=== PATIENT | female | born 1995 | race Two or more races ===

== ENCOUNTER → 2019-05-20 | Outpatient (CLI) | payer SELFPAY ==
--- NOTE | 2019-05-20 14:54 | RADIOLOGY REPORT (SQ) ---
EXAM DESCRIPTION: U/S [id number] TRNABD 1GES W/ODOP COMPLETED DATE/TIME: 05/20/2019 2:30 pm REASON FOR STUDY: Z34.01 ENCNTR FOR SUPRVSN OF NORMAL FIRST PREG, FIRST TRIMESTER Z34.01 ENCNTR FOR SUPRVSN OF NORMAL FIRST PREG, FIRST TRIMES COMPARISON: None. TECHNIQUE: Transabdominal static and realtime grayscale images acquired of the pelvis. Additional se lected spectral and color Doppler images recorded. All images stored on PACs. bHCG: Not applicable. CLINICAL DATES: 11 weeks 5 days. LIMITATIONS: None. FINDINGS: FETUS: Single Living intrauterine . ULTRASOUND EGA: 11 weeks 1 day. ULTRASOUND STEPHY: 12/07/2018. EFW: Not applicable less than 20 weeks. CRL: 4.3 cm. FHR: 158 beats per minute. SURVEY: Too early to assess. AMNIOTIC FLUID: Adequate amount. PLACENTA: Not yet developed due to early gestation. SUBCHORIONIC BLEED: No. SIZE OF BLEED: Not applicable. UTERUS: No masses. No anomalies. CERVICAL LENGTH: 3.5 cm. Closed. RIGHT ADNEXA: Ovary not identified due to poor acoustical window. No adnexal free fluid. No adnexal masses. LEFT ADNEXA: Ovary not identified due to poor acoustical window. No adnexal free fluid. No adnexal masses. FREE FLUID: None. OTHER: No other significant finding. IMPRESSION: LIVING INTRAUTERINE . EGA 11 WEEKS 1 DAY. Trimester of : First trimester - 0 to 13 weeks. TECHNICAL DOCUMENTATION: JOB ID: [id number] [employer]- All Rights Reserved Reading location - IP/workstation name: [email or web address]
== END ==
LOC: RAD 13:48
PROVIDERS: ATTEND Midwife
DX: Z34.01 Encounter for supervision of normal first pregnancy, first trimester (principal)
CPT/HCPCS: 76801

== ENCOUNTER 2019-06-04 16:31 | Emergency (ER) | payer SELFPAY ==
[2019-06-04] MEDS ORDERED: ONDANSETRON HCL INJ/PF 4 MG/2 ML SDV IV ONE (17:17)
[2019-06-04] MEDS ORDERED: NORMAL SALINE 1000 ML 1,000 ML IV ONE (17:17)
--- NOTE | 2019-06-04 17:22 | ER Document Report ---
ED Medical Screen (RME) - General Chief Complaint: Vomiting Stated Complaint: VOMITING Time Seen by Provider: 06/04/19 17:11 Primary Care Provider: AMI RAYA CNM [Primary Care Provider] - Follow up as needed Notes: Patient is a G1, P0 13-week female who presents the emergency department with a chief complaint of nausea and vomiting. She states that she has been out of her nausea and vomiting. She has not seen care, due to her being from [place] and visiting her boyfriend. Patient states that she has some vaginal discharge. Exam: Soft mildly tender lower abdomen. I have greeted and performed a rapid initial assessment of this patient. A comprehensive ED assessment and evaluation of the patient, analysis of test results and completion of medical decision making process will be conducted by an additional ED providers. TRAVEL OUTSIDE OF THE U.S. IN LAST 30 DAYS: No - Related Data Allergies/Adverse Reactions: No Known Allergies Allergy (Verified 04/16/19 10:42) Past Medical History - Social History Chew tobacco use (# tins/day): No Frequency of alcohol use: None Drug Abuse: None Renal/ Medical History: Denies: Hx Peritoneal Dialysis Past Surgical History: Reports: Hx Orthopedic Surgery - Immunizations Hx Diphtheria, Pertussis, Tetanus Vaccination: No Physical Exam - Vital signs Vitals: Temp Pulse Resp BP Pulse Ox 98.3 F 85 16 118/63 98 06/04/19 16:44 06/04/19 16:44 06/04/19 16:44 06/04/19 16:44 06/04/19 16:44 Course - Vital Signs Vital signs: Temp Pulse Resp BP Pulse Ox 98.3 F 85 16 118/63 98 06/04/19 16:44 06/04/19 16:44 06/04/19 16:44 06/04/19 16:44 06/04/19 16:44 Doctor's Discharge - Discharge Referrals: AMI RAYA CNM [Primary Care Provider] - Follow up as needed
[2019-06-04 17:57] LABS: ABSOLUTE EOSINOPHILS # (AUTO) 0.1 10^3/uL (0.0-0.6); ABSOLUTE LYMPHOCYTES (AUTO) 2.2 10^3/uL (0.5-4.7); ABSOLUTE MONOCYTES (AUTO) 0.6 10^3/uL (0.1-1.4); ABSOLUTE NEUT (AUTO) 5.5 10^3/uL (1.7-8.2); BASOPHILS % (AUTO) 0.4 % (0-2); EOSINOPHILS % (AUTO) 0.8 % (0-6); HEMATOCRIT 38.2 % (36.0-47.0); HEMOGLOBIN 13.2 g/dL (12.0-15.5); LYMPHOCYTES % (AUTO) 25.9 % (13-45); MEAN CORPUSCULAR HEMOGLOBIN 30.2 pg (27.0-33.4); MEAN CORPUSCULAR HGB CONC 34.6 g/dL (32.0-36.0); MEAN CORPUSCULAR VOLUME 87 fl (80-97); MONOCYTES % (AUTO) 7.4 % (3-13); PLATELET COUNT 294 10^3/uL (150-450); RED BLOOD COUNT 4.38 10^6/uL (3.72-5.28); RED CELL DISTRIBUTION WIDTH 14.3 % (11.5-14.0); SEGMENTED NEUTROPHILS % (AUTO) 65.5 % (42-78); TOTAL CELLS COUNTED % (AUTO) 100 %; WHITE BLOOD COUNT 8.4 10^3/uL (4.0-10.5)
[2019-06-04 18:18] LABS: ALBUMIN 4.3 g/dL (3.5-5.0); ALKALINE PHOSPHATASE 54 U/L (38-126); ANION GAP 11 (5-19); ASPARTATE AMINO TRANSFERASE 26 U/L (14-36); BILIRUBIN,DIRECT 0.1 mg/dL (0.0-0.4); BILIRUBIN,TOTAL 0.3 mg/dL (0.2-1.3); BLOOD UREA NITROGEN 7 mg/dL (7-20); CALCIUM 9.7 mg/dL (8.4-10.2); CARBON DIOXIDE 23 mmol/L (22-30); CHLORIDE 103 mmol/L (98-107); GLUCOSE 86 mg/dL (75-110); POTASSIUM 3.9 mmol/L (3.6-5.0); TOTAL PROTEIN 7.2 g/dL (6.3-8.2)
--- NOTE | 2019-06-04 18:25 | RADIOLOGY REPORT (SQ) ---
EXAM DESCRIPTION: U/S [id number] TRNABD 1GES W/ODOP COMPLETED DATE/TIME: 06/04/2019 6:03 pm REASON FOR STUDY: pelvic pain COMPARISON: None. TECHNIQUE: Transabdominal static and realtime grayscale images acquired of the pelvis. Additional se lected spectral and color Doppler images recorded. All images stored on PACs. bHCG: Pending. CLINICAL DATES: 13 weeks 5 days LIMITATIONS: None. FINDINGS: FETUS: Single Living intrauterine . ULTRASOUND EGA: 13 weeks 2 days ULTRASOUND STEPHY: 12/08/2019 EFW: Not applicable less than 20 weeks. CRL: 7.1 cm FHR: 157 beats per minute. SURVEY: No visualized anomalies. AMNIOTIC FLUID: Adequate amount. PLACENTA: Posterior. SUBCHORIONIC BLEED: No SIZE OF BLEED: Not applicable. UTERUS: No masses. No anomalies. CERVICAL LENGTH: 2.6 cm Closed. RIGHT ADNEXA: Normal ovary with normal vascular flow. No adnexal free fluid. No adnexal masses. LEFT ADNEXA: Normal ovary with normal vascular flow. No adnexal free fluid. No adnexal masses. FREE FLUID: None. OTHER: No other significant finding. IMPRESSION: LIVING INTRAUTERINE . EGA 13 weeks 2 days Trimester of : First trimester - 0 to 13 weeks. TECHNICAL DOCUMENTATION: JOB ID: [id number] [employer]- All Rights Reserved rev Reading location - IP/workstation name: [email or web address]
[2019-06-04 18:27] LABS: APPEARANCE,URINE SLIGHTLY-CLOUDY; BILIRUBIN,URINE NEGATIVE (NEGATIVE); COLOR,URINE YELLOW; GLUCOSE, URINE NEGATIVE (NEGATIVE); KETONES,URINE NEGATIVE (NEGATIVE); LEUKOCYTE ESTERASE,URINE TRACE (NEGATIVE); NITRITE,URINE NEGATIVE (NEGATIVE); PROTEIN,URINE NEGATIVE (NEGATIVE); URINE SPECIFIC GRAVITY 1.021; UROBILINOGEN,URINE NEGATIVE mg/dL (<2.0)
--- NOTE | 2019-06-04 19:06 | ER Document Report ---
ED GI/ - General Chief Complaint: Vomiting Stated Complaint: VOMITING Time Seen by Provider: 06/04/19 17:11 Primary Care Provider: AMI RAYA CNM [Primary Care Provider] - Follow up as needed Mode of Arrival: Ambulatory Information source: Patient Notes: 24-year-old female presented to ED for complaint of nausea vomiting and pelvic pain. She has [facility] while she is here visiting her boyfriend who is soon getting out of the . She states she is also been seen at [facility] and at [facility]. She states she is gotten Zofran from both hospitals. She is 1 para 0 and 13 weeks . She states she has some vaginal discharge which she told the provider in triage who ordered a GC chlamydia and wet mount. Patient states she was just evaluated for this a week ago and all the tests were negative. I told her that if she has not been sexually active with anyone but her boyfriend that there is not really a lot of chance of her having anything new. She states she has not had an ultrasound before today. I have discussed the ultrasound and the lab results with the patient. She does not have any tenderness at this time. She did receive a liter of fluids before I examined her TRAVEL OUTSIDE OF THE U.S. IN LAST 30 DAYS: No - HPI Patient complains to provider of: Pelvic pain, , Vaginal discharge Onset: Other - Most of her for 13 weeks Timing/Duration: Intermittent Quality of pain: Cramping Severity at maximum: Moderate Severity in ED: Moderate Pain Level: 3 Location: Pelvis Vaginal bleeding (Compared to normal period): None Menstrual period history: LMP: 02/27/2019 : 1 Para: 0 heart tones (bpm): 157 ABO type: O Rh factor: Positive OB ultrasound done: Yes Associated symptoms: Nausea, Vaginal discharge, Vomiting, Other - Exacerbated by: Denies Relieved by: Denies Similar symptoms previously: Yes Recently seen / treated by doctor: Yes - Related Data Allergies/Adverse Reactions: No Known Allergies Allergy (Verified 04/16/19 10:42) Past Medical History - General Information source: Patient - Social History Smoking Status: Never Smoker Chew tobacco use (# tins/day): No Frequency of alcohol use: None Drug Abuse: None Lives with: Spouse/Significant other Family History: Reviewed & Not Pertinent Patient has suicidal ideation: No Patient has homicidal ideation: No - Past Medical History Cardiac Medical History: Reports: None Pulmonary Medical History: Reports: None EENT Medical History: Reports: None Neurological Medical History: Reports: None Endocrine Medical History: Reports: None Renal/ Medical History: Reports: None Malignancy Medical History: Reports: None GI Medical History: Reports: None Musculoskeletal Medical History: Reports Hx Musculoskeletal Trauma Skin Medical History: Reports None Psychiatric Medical History: Reports: None Traumatic Medical History: Reports: None Infectious Medical History: Reports: None Past Surgical History: Reports: Hx Orthopedic Surgery - left leg - Immunizations Hx Diphtheria, Pertussis, Tetanus Vaccination: No Review of Systems - Review of Systems Constitutional: No symptoms reported EENT: No symptoms reported Cardiovascular: No symptoms reported Respiratory: No symptoms reported Gastrointestinal: Abdominal pain - Discomfort Genitourinary: Pain Female Genitourinary: , Vaginal discharge, Other - Pelvic pain same pain she has had for the entire Musculoskeletal: No symptoms reported Skin: No symptoms reported Hematologic/Lymphatic: No symptoms reported Neurological/Psychological: No symptoms reported -: Yes All other systems reviewed and negative Physical Exam - Vital signs Vitals: Temp Pulse Resp BP Pulse Ox 98.3 F 85 16 118/63 98 06/04/19 16:44 06/04/19 16:44 06/04/19 16:44 06/04/19 16:44 06/04/19 16:44 Interpretation: Normal - General General appearance: Appears well, Alert - HEENT Head: Normocephalic, Atraumatic Eyes: Normal Pupils: PERRL - Respiratory Respiratory status: No respiratory distress Chest status: Nontender Breath sounds: Normal Chest palpation: Normal - Cardiovascular Rhythm: Regular Heart sounds: Normal auscultation Murmur: No - Abdominal Inspection: Gravid female Distension: No distension Bowel sounds: Hyperactive Tenderness: Nontender, Tender Organomegaly: No organomegaly - Back Back: Normal, Nontender - Extremities General upper extremity: Normal inspection, Nontender, Normal color, Normal ROM, Normal temperature General lower extremity: Normal inspection, Nontender, Normal color, Normal ROM, Normal temperature, Normal weight bearing. No: Jose's sign - Neurological Neuro grossly intact: Yes Cognition: Normal Orientation: AAOx4 [place] Coma Scale Eye Opening: Spontaneous Jorge Coma Scale Verbal: Oriented [place] Coma Scale Motor: Obeys Commands [place] Coma Scale Total: 15 Speech: Normal Motor strength normal: LUE, RUE, LLE, RLE Sensory: Normal - Psychological Associated symptoms: Normal affect, Normal mood - Skin Skin Temperature: Warm Skin Moisture: Dry Skin Color: Normal Course - Re-evaluation Re-evalutation: 06/04/19 19:16 Discussed labs and ultrasound with patient. Written report of labs and ultrasound given to patient. Patient is hyperactive bowel sounds. She states she is frequently constipated. Patient was instructed to use prunes or prune juice with a hot drink to help her with her bowel movement since she is . Patient verbalized understanding and agreement with this treatment plan. Written report of labs ultrasound and a CD of the ultrasound were given to patient as she lives in [place] and plans to move back in 2 weeks when her boyfriend gets out of the . - Vital Signs Vital signs: Temp Pulse Resp BP Pulse Ox 98.0 F 87 16 105/56 L 99 06/04/19 19:35 06/04/19 19:35 06/04/19 19:35 06/04/19 19:35 06/04/19 19:35 - Laboratory Result Diagrams: 06/04/19 17:36 06/04/19 17:36 Laboratory results interpreted by me: 06/04/19 06/04/19 06/04/19 17:36 17:36 17:36 RDW 14.3 H Sodium 136.5 L Creatinine 0.51 L Ur Leukocyte Esterase TRACE H - Diagnostic Test Radiology reviewed: Image reviewed, Reports reviewed Discharge - Discharge Clinical Impression: Pelvic pain affecting in first trimester, antepartum Abdominal pain Qualifiers: Abdominal location: generalized Qualified Code(s): R10.84 - Generalized abdominal pain Condition: Stable Disposition: HOME, SELF-CARE Additional Instructions: ABDOMINAL PAIN: There are many causes of abdominal pain. Pain can mean a serious problem requiring surgery (such as appendicitis). It can also be an innocent problem that goes away on its own (such as a viral infection). Often, time must pass to determine the cause of pain. The physician does not feel that hospitalization is necessary, at present. Things may change within the next 24 hours. Call the doctor or come back for re- examination if any problems occur, such as: (1) Pain that becomes more severe, steady, or becomes concentrated in one specific area. Also, pain that is more severe with movement or coughing. (2) Vomiting that persists or becomes more frequent. (3) Blood in the vomitus, urine, or bowel movements. Blood in the stool may have a tarry or black appearance. (4) Shaking chills or fever greater than 100 degrees F. (5) The abdomen becomes more distended or swollen. (6) Bowel movements cease. (7) Failure to improve as expected. NORMAL EXAM AND WORKUP: At this time, your examination and workup show no significant abnormality. No significant abnormal physical findings are noted. All laboratory, EKG, and imaging (x-ray, CT scans, ultrasound) studies that were ordered show no significant abnormality. Although your examination and all studies that were ordered showed no significant abnormal finding, there are no examinations and no studies that are 100% accurate. There is always the possibility that some abnormality could exist and not be detected with physical examination or within the limits and capabilities of laboratory and other studies. You should return or follow up as you were instructed on your visit today for further evaluation if your symptoms do not resolve. Pelvic Pain in Lower abdominal pain during can have many causes. We look for serious causes such as appendicitis, tubal , miscarriage, placental separation, or urinary tract infection. Less serious causes of pain include corpus luteum cyst (ovarian cyst of ) or stretching of the pelvic tissues by the enlarging uterus. Sometimes the pain comes from the bowels. If no specific cause for the pain is found, we attribute the pain to stretching of the uterine ligaments. This is called "round ligament strain." It is not dangerous. Just rest until the pain goes away. Call us or come back for reexamination if any problems occur, such as: (1) Pain that becomes more severe, steady, or becomes concentrated in one specific area. Also, pain that is more severe with movement or coughing. (2) Vomiting that persists or becomes more frequent. (3) Blood in the vomitus, urine, or bowel movements. Blood in the stool may have a tarry or black appearance. (4) Shaking chills or fever greater than 100 degrees. (5) The abdomen becomes more distended or swollen. (6) Bowel movements cease. (7) Vaginal bleeding. ANTINAUSEA MEDICATION: You have been given a medication to suppress nausea and vomiting. This type of medication can be given as a shot, pill, or suppository. It will usually last for many hours. Pills and shots usually last six to eight hours, suppositories last about 12 hours. For the typical illness, only one or two doses of the medication may be necessary. Mild lightheadedness may occur. This type of medicine can cause drowsiness. Do not drive or operate dangerous machinery while under its influence. Do not mix with alcohol. See your doctor at once if you have muscle spasms or tightness, or uncontr ollable motions (particularly of the neck, mouth, or jaw). Persistent vomiting or severe lightheadedness should also be evaluated by the physician. I have discussed your labs and ultrasound with you. You states she [facility] and had negative gonorrhea chlamydia and wet mount. You do not need to have repeated test if you would just negative a week ago. The GC and chlamydia have already been run if anything shows up on them they will call you but if you were negative a week ago I would not think they would be positive now. I have given you a written report of your labs and ultrasound to follow-up with [facility] when you return to [place]. Intravenous (IV) Fluids As part of your care today, you received intravenous (IV) fluids. IV fluids are administered to patients who are dehydrated or to those who have certain chemical (electrolyte) abnormalities that need correcting. FOLLOW-UP CARE: If you have been referred to a physician for follow-up care, call the physicians office for an appointment as you were instructed or within the next two days. If you experience worsening or a significant change in your symptoms, notify the physician immediately or return to the Emergency Department at any time for re-evaluation. Prescriptions: Ondansetron [Zofran Odt 4 mg Tablet] 1 tab PO Q6H #15 tab.rapdis Referrals: AMI RAYA CNM [Primary Care Provider] - Follow up as needed
[2019-06-04 19:21] LABS: CHLAM PCR NOT DETECTED (NOT DETECT)
[2019-06-04 19:36] VITALS: BP 105/56
== END 2019-06-04 19:35 | disposition home or self-care (01) ==
LOC: ER 16:31
DX: O26.91 Pregnancy related conditions, unspecified, first trimester (principal); R10.84 Generalized abdominal pain; R11.2 Nausea with vomiting, unspecified; R10.2 Pelvic and perineal pain; Z3A.13 13 weeks gestation of pregnancy
CPT/HCPCS: 86900; 86901; 36415; 85025; 80053; 81001; 87491; 87591; 76801; J2405; J7030

== ENCOUNTER 2019-07-26 15:16 | Emergency (ER) | payer SELFPAY ==
[2019-07-26 15:27] VITALS: BP 120/63
[2019-07-26] MEDS ORDERED: ACETAMINOPHEN 325 MG TABLET PO ONE (15:34)
--- NOTE | 2019-07-26 15:35 | ER Document Report ---
HPI - HPI Patient complains to provider of: Bilateral wrist pain Time Seen by Provider: 07/26/19 15:28 Onset: Other - 3 days Onset/Duration: Persistent Quality of pain: Achy Pain Level: 3 Context: Patient presents complaining of bilateral wrist pain. Patient states the pain is primarily in the morning and worsens when she hyper-flexes or extends her wrist. Patient denies any injury or fever. 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 Associated Symptoms: Other - Bilateral wrist pain. denies: Fever Exacerbated by: Movement Relieved by: Remaining still Similar symptoms previously: No Recently seen / treated by doctor: No - ROS ROS below otherwise negative: Yes Systems Reviewed and Negative: Yes All other systems reviewed and negative - CONSTITUTIONAL Constitutional: DENIES: Fever, Chills - NEURO Neurology: DENIES: Weakness - GASTROINTESTINAL Gastrointestinal: DENIES: Nausea - REPRODUCTIVE Reproductive: REPORTS: : - MUSCULOSKELETAL Musculoskeletal: REPORTS: Extremity pain. DENIES: Swelling - DERM Skin Color: Normal Skin Problems: None Past Medical History - General Information source: Patient - Social History Smoking Status: Former Smoker Chew tobacco use (# tins/day): No Frequency of alcohol use: None Drug Abuse: None Occupation: [employer] Family History: Reviewed & Not Pertinent Patient has suicidal ideation: No Patient has homicidal ideation: No - Medical History Medical History: Negative Renal/ Medical History: Denies: Hx Peritoneal Dialysis Past Surgical History: Reports: Hx Orthopedic Surgery - left leg - Immunizations Hx Diphtheria, Pertussis, Tetanus Vaccination: No Vertical Provider Document - CONSTITUTIONAL Agree With Documented VS: Yes Exam Limitations: No Limitations General Appearance: WD/WN, No Apparent Distress - INFECTION CONTROL TRAVEL OUTSIDE OF THE U.S. IN LAST 30 DAYS: No - HEENT HEENT: Atraumatic, Normocephalic - NECK Neck: Normal Inspection - RESPIRATORY Respiratory: No Respiratory Distress - CARDIOVASCULAR Pulses: Normal: Radial - MUSCULOSKELETAL/EXTREMETIES Musculoskeletal/Extremeties: MAEW, FROM, Tender - Tenderness to bilateral wrist and forearm, positive Phalen test, no radial, median or ulnar deficit, No Edema. negative: Eccymosis Notes: No joint swelling, erythema or calor - NEURO Level of Consciousness: Awake, Alert, Appropriate Motor/Sensory: No Motor Deficit - DERM Integumentary: Warm, Dry Course - Re-evaluation Re-evalutation: 07/26/19 15:39 Patient presents with likely carpal tunnel syndrome, no concern for septic arthritis gout or fracture. Patient encouraged to follow-up with orthopedics for any persistent pain or problems - Vital Signs Vital signs: Temp Pulse Resp BP Pulse Ox 98.1 F 85 16 120/63 100 07/26/19 15:26 07/26/19 15:26 07/26/19 15:26 07/26/19 15:26 07/26/19 15:26 Procedures - Immobilization Left Wrist Pre-Proc Neuro Vasc Exam: Normal Immobilizer type: Cock-up Performed by: PCT Post-Proc Neuro Vasc Exam: Normal Right Wrist Immobilizer type: Cock-up Performed by: PCT Post-Proc Neuro Vasc Exam: Normal Alignment checked and good: Yes Discharge - Discharge Clinical Impression: Bilateral wrist pain Condition: Stable Disposition: HOME, SELF-CARE Instructions: Acetaminophen, Carpal Tunnel Syndrome ([facility]), Temporary Splint ([facility]) Additional Instructions: Return immediately for any new or worsening symptoms Followup with your primary care provider, call tomorrow to make a followup appointment Wear splint for the next 5 days and then remove. If still having pain follow-up with orthopedics for further evaluation. Limit repetitive activities Forms: Return to Work, Restricted Release Referrals: AMI RAYA CNM [Primary Care Provider] - Follow up as needed [facility] [Provider Group] - Follow up as needed
== END 2019-07-26 15:49 | disposition home or self-care (01) ==
LOC: ER 15:16
DX: M25.531 Pain in right wrist (principal); M25.532 Pain in left wrist; Z87.891 Personal history of nicotine dependence
CPT/HCPCS: L3908 ×2

== ENCOUNTER → 2019-08-05 | Outpatient (CLI) | payer OTHER ==
--- NOTE | 2019-08-05 17:39 | RADIOLOGY REPORT (SQ) ---
EXAM DESCRIPTION: U/S OB 14+ TRNABD 1GES W/O DOP COMPLETED DATE/TIME: 08/05/2019 3:38 pm REASON FOR STUDY: Z34.02 ENCNTR FOR SUPRVSN OF NORMAL FIRST PREG, SECOND TRIMESTER Z34.02 ENCNTR FO R SUPRVSN OF NORMAL FIRST PREG, SECOND TRIME COMPARISON: 06/04/2019 TECHNIQUE: Static and Dynamic grayscale imaging performed of gravid uterus using transabdominal appr oach. Additional selected color Doppler and spectral images recorded. All stored on PACS. LIMITATIONS: None. FINDINGS: FETUSES SEEN:1 EGA: 22 WEEKS 3 DAYS Calculated using BPD,FL,HC,AC documented on images. No discrepancy with clinica l dates. STEPHY: 12/06/2019 EFW: 495 grams PERCENTILE: 35th percentile CLIFF: Largest pocket 4 cm PLACENTA: Posterior grade 1 PRESENTATION: Variable ANATOMY: HEART RATE: 157 beats per minute. FOUR CHAMBER HEART: Visualized. THREE VESSEL CORD: Yes. CORD INSERTION: Visualized. KIDNEYS AND BLADDER: Visualized. Appear normal. STOMACH: Visualized. Appears normal. SPINE: Normal as visualized. BRAIN AND LATERAL VENTRICLES: Visualized. Appear normal. OTHER: No other significant finding. MATERNAL ADNEXA: Maternal ovaries not visualized. CERVICAL LENGTH: 2.7 cm Closed. OTHER: No other significant finding. IMPRESSION: LIVING INTRAUTERINE . ESTIMATED GESTATIONAL AGE 22 weeks 3 days NO VISUALIZED ANOMALIES. Trimester of : Second trimester - 13 weeks 1 day to 27 weeks 6 days. TECHNICAL DOCUMENTATION: JOB ID: [id number] [employer]- All Rights Reserved Reading location - IP/workstation name: [email or web address]
== END ==
LOC: RAD 15:00
PROVIDERS: ATTEND Midwife
DX: Z34.02 Encounter for supervision of normal first pregnancy, second trimester (principal); Z3A.22 22 weeks gestation of pregnancy
CPT/HCPCS: 76805

== ENCOUNTER 2019-08-17 17:53 | Emergency (ER) | payer OTHER ==
--- NOTE | 2019-08-17 18:37 | ER Document Report ---
ED Medical Screen (RME) - General Chief Complaint: Abdominal Pain Stated Complaint: ARM INJURY Time Seen by Provider: 08/17/19 18:21 Primary Care Provider: AMI RAYA CNM [Primary Care Provider] - Follow up as needed Notes: Patient is a 24-year-old female who is 24 weeks who presents emergency department with a chief complaint of bilateral wrist pain and abdominal pain. Patient reports earlier today while at work she was pulling a metal rail when she felt a tug to her left abdomen. Patient reports this did not strike her abdomen and there was no trauma to the abdomen. Patient reports since then she has had vaginal pressure and one episode of spotting. Patient reports the episode of spotting occurred when she went to go use the restroom, wiped with the toilet paper noticed a light pink discharge. Patient also complains of bilateral wrist pain. She reports she was seen here recently in the emergency department and diagnosed with carpal tunnel placed in bilateral wrist splints. Patient reports she did go to physical therapy 2 weeks ago and was told to continue using the splints and Tylenol. Patient reports the Tylenol does not work. Patient reports she does use her hands a lot at work. TRAVEL OUTSIDE OF THE U.S. IN LAST 30 DAYS: No - Related Data Allergies/Adverse Reactions: No Known Allergies Allergy (Verified 04/16/19 10:42) Past Medical History Renal/ Medical History: Denies: Hx Peritoneal Dialysis Musculoskeltal Medical History: Reports Hx Musculoskeletal Trauma Past Surgical History: Reports: Hx Orthopedic Surgery - left leg - Immunizations Hx Diphtheria, Pertussis, Tetanus Vaccination: No Physical Exam - Vital signs Vitals: Temp Pulse Resp BP Pulse Ox 98.2 F 95 20 101/52 L 99 08/17/19 18:05 08/17/19 18:05 08/17/19 18:05 08/17/19 18:05 08/17/19 18:05 Course - Re-evaluation Re-evalutation: 08/17/19 18:37 I have greeted and performed a rapid initial assessment of this patient. A comprehensive ED assessment and evaluation of the patient, analysis of test results and completion of the medical decision making process will be conducted by additional ED providers. - Vital Signs Vital signs: Temp Pulse Resp BP Pulse Ox 98.2 F 95 20 101/52 L 99 08/17/19 18:05 08/17/19 18:05 08/17/19 18:05 08/17/19 18:05 08/17/19 18:05 Doctor's Discharge - Discharge Referrals: AMI RAYA CNM [Primary Care Provider] - Follow up as needed
[2019-08-17 19:22] LABS: APPEARANCE,URINE CLEAR; BILIRUBIN,URINE NEGATIVE (NEGATIVE); COLOR,URINE STRAW; GLUCOSE, URINE NEGATIVE (NEGATIVE); KETONES,URINE NEGATIVE (NEGATIVE); LEUKOCYTE ESTERASE,URINE NEGATIVE (NEGATIVE); NITRITE,URINE NEGATIVE (NEGATIVE); PROTEIN,URINE NEGATIVE (NEGATIVE); URINE SPECIFIC GRAVITY 1.009; UROBILINOGEN,URINE NEGATIVE mg/dL (<2.0)
--- NOTE | 2019-08-17 19:46 | RADIOLOGY REPORT (SQ) ---
EXAM DESCRIPTION: U/S OB 14+ TA/1 GEST W/DOPPLER COMPLETED DATE/TIME: 08/17/2019 7:32 pm REASON FOR STUDY: abdominal discomfort, 24 weeks COMPARISON: 06/29/2019 TECHNIQUE: Static and Dynamic grayscale imaging performed of gravid uterus using transabdominal appr oach. Additional selected color Doppler and spectral images recorded. All stored on PACS. LIMITATIONS: None. FINDINGS: FETUSES SEEN:1 EGA: 24 weeks 3 days Calculated using BPD,FL,HC,AC documented on images. No discrepancy with clinica l dates. STEPHY: 12/04/2019 EFW: 709+/- 105 grams PERCENTILE: Not calculated. CLIFF: 12.9 cm. PLACENTA: Posterior and to the right. GRADE: I PRESENTATION: Variable. ANATOMY: HEART RATE: 152 beats per minute. Complete anatomical assessment was not performed. OTHER: Cervix measures 2.7 cm. MATERNAL ADNEXA: Maternal ovaries not visualized. CERVICAL LENGTH: 2.7 cm. Closed. OTHER: No other significant finding. IMPRESSION: LIVING INTRAUTERINE . ESTIMATED GESTATIONAL AGE 24 weeks 3 days. NO VISUALIZED ANOMALIES. Trimester of : Second trimester - 13 weeks 1 day to 27 weeks 6 days. TECHNICAL DOCUMENTATION: JOB ID: [id number] [employer]- All Rights Reserved Reading location - IP/workstation name: [email or web address]
[2019-08-17] MEDS ORDERED: ACETAMINOPHEN 325 MG TABLET PO ONE (20:24)
--- NOTE | 2019-08-17 20:37 | ER Document Report ---
ED General - General Chief Complaint: Abdominal Pain Stated Complaint: ARM INJURY Time Seen by Provider: 08/17/19 18:21 Primary Care Provider: AMI RAYA CNM [NO LOCAL MD] - Follow up as needed TRAVEL OUTSIDE OF THE [place] IN LAST 30 DAYS: No - HPI Notes: Patient is a 24-year-old female, , who presents emergency department for evaluation of bilateral wrist pain and pelvic pain/bleeding. Initially, patient's complaint is bilateral carpal tunnel. She was diagnosed with this recently. She is placed in response. She is taking Tylenol. She states none of this is helping. She complains of numbness in the normal distribution. She has some weakness. This is been ongoing for a few weeks. She has had some physical therapy with nothing significant relief. Patient also states that she was straining yesterday, felt something pull on her abdomen, and then had one small episode of vaginal bleeding. She states this is only with wiping after urination. She has not had any continuous bleeding. She is unsure as to whether or not she is felt the baby move since then. - Related Data Allergies/Adverse Reactions: No Known Allergies Allergy (Verified 04/16/19 10:42) Home Medications: vitamin Past Medical History - General Information source: Patient - Social History Smoking Status: Never Smoker Family History: Reviewed & Not Pertinent Patient has suicidal ideation: No Patient has homicidal ideation: No Renal/ Medical History: Denies: Hx Peritoneal Dialysis Musculoskeletal Medical History: Reports Hx Musculoskeletal Trauma Past Surgical History: Reports: Hx Orthopedic Surgery - left leg - Immunizations Hx Diphtheria, Pertussis, Tetanus Vaccination: No Review of Systems - Review of Systems Constitutional: No symptoms reported EENT: No symptoms reported Cardiovascular: No symptoms reported Respiratory: No symptoms reported Gastrointestinal: No symptoms reported Genitourinary: See HPI Female Genitourinary: See HPI Musculoskeletal: See HPI Skin: No symptoms reported Neurological/Psychological: No symptoms reported Physical Exam - Vital signs Vitals: Temp Pulse Resp BP Pulse Ox 98.2 F 95 20 101/52 L 99 08/17/19 18:05 08/17/19 18:05 08/17/19 18:05 08/17/19 18:05 08/17/19 18:05 - Notes Notes: Is a pleasant 24-year-old female appears her stated age in acute distress. Head is normocephalic, atraumatic. Pupils are equal round, reactive to light. Oral mucosa is moist. Heart is regular rate and rhythm, lungs are clear station bilaterally. Abdomen is gravid, nontender, normoactive bowel sounds. Examination bilateral upper extremities feels cock-up wrist splints in place. Neurovascularly intact distally. She does have diminished sensation to light touch over the first through third digits on the right, first through second digits on the left. Positive Phalen's. Course - Re-evaluation Re-evalutation: 08/17/19 20:35 Patient is a 24-year-old female who presents emergency department for evaluation. She had initial orders as placed through triage. Unfortunately, I do not have anything else to offer the patient for her carpal tunnel issues besides Tylenol. I will go ahead and place a referral onto orthopedics. She is encouraged to continue physical therapy. In regards to her scant bleeding, her ultrasound was found to be normal. Her urinalysis feels reveal any signs of bleeding or infection. Patient is encouraged to follow-up with OB next week, return to the ED with worsening. - Vital Signs Vital signs: Temp Pulse Resp BP Pulse Ox 98.2 F 95 20 101/52 L 99 08/17/19 18:05 08/17/19 18:05 08/17/19 18:05 08/17/19 18:05 08/17/19 18:05 Discharge - Discharge Clinical Impression: Bilateral carpal tunnel syndrome, Vaginal bleeding in Condition: Stable Disposition: HOME, SELF-CARE Instructions: Carpal Tunnel Syndrome ([facility]) Additional Instructions: Continue Tylenol as needed for your wrist pain. Seek out orthopedic referral, you can follow-up with the doctor listed below. Continue with wrist splints, physical therapy. Your ultrasound failed to reveal any significant abnormality. Follow-up with OB next week. Return to the ED with worsening or new concerning symptoms of any sort. Referrals: AMI RAYA CNM [NO LOCAL MD] - Follow up as needed JERRICA CASTAÑEDA DO [ACTIVE STAFF] - Follow up as needed JAREK DAVALOS MD [ACTIVE STAFF] - Follow up as needed
[2019-08-17 20:58] VITALS: BP 108/60
== END 2019-08-17 20:50 | disposition home or self-care (01) ==
LOC: ER 17:53
DX: O46.92 Antepartum hemorrhage, unspecified, second trimester (principal); O26.892 Other specified pregnancy related conditions, second trimester; G56.03 Carpal tunnel syndrome, bilateral upper limbs; M25.531 Pain in right wrist; M25.532 Pain in left wrist; R10.2 Pelvic and perineal pain; R20.0 Anesthesia of skin; R53.1 Weakness; Z3A.24 24 weeks gestation of pregnancy
CPT/HCPCS: 76805; 81001; 93976; 99284

== ENCOUNTER 2019-09-03 11:23 | Emergency (ER) | payer OTHER ==
[2019-09-03 11:53] VITALS: BP 113/68
--- NOTE | 2019-09-03 12:26 | ER Document Report ---
HPI - HPI Time Seen by Provider: 09/03/19 12:11 Pain Level: 4 Notes: 24-year-old female 28 weeks 1 para 0 presents to the emergency room for complaints of dental pain that radiates to ear after she "floss really hard last night". Patient seen by [facility]. Has not tried [id number] medications. Does not drink heat or ice. No previous problems prior to flossing. Patient does have a dental cavity that she has not followed up with a dentist for. Pain is 4-10, throbbing achy. Decreased eating but drinking without issues. Has been able to feel baby kicking without issues. Denies fevers, chills, chest pain,palpitations, shortness of breath, dyspnea, nausea, vomiting, diarrhea, abdominal pain, hematuria,blurred vision, double vision, loss of vision, speech changes, LH, dizziness, syncope, headaches, wheezing, ST, URI, neck pain, weakness, bowel or bladder dysfunction, saddle anesthesia, numbness or tingling in bilateral upper or lower extremities equally, muscle paralysis, weakness in bilateral upper or lower extremities equally or rash. REVIEW OF SYSTEMS:reviewed vital signs by RN CONSTITUTIONAL : Denies fever, chills, or sweats. Denies recent illness. EENT: reports dental pain. Denies eye, ear, throat, or or symptoms. Denies nasal or sinus congestion or discharge. Denies throat, tongue, or mouth swelling or difficulty swallowing. CARDIOVASCULAR: Denies chest pain. Denies palpitations or racing or irregular heart beat. Denies ankle edema. RESPIRATORY: Denies cough, cold, or chest congestion. Denies shortness of breath, difficulty breathing, or wheezing. GASTROINTESTINAL: Denies abdominal pain or distention. Denies nausea, vomiting, or diarrhea. Denies blood in vomitus, stools, or per rectum. Denies black, tarry stools. Denies constipation. GENITOURINARY: Denies difficulty urinating, painful urination, burning, frequency, blood in urine, or discharge. FEMALE GENITOURINARY: Denies vaginal bleeding, heavy or abnormal periods, irregular periods. Denies vaginal discharge or odor. MUSCULOSKELETAL: Denies back or neck pain or stiffness. Denies joint pain or swelling. SKIN: Denies rash, lesions or sores. HEMATOLOGIC : Denies easy bruising or bleeding. LYMPHATIC: Denies swollen, enlarged glands. NEUROLOGICAL: Denies confusion or altered mental status. Denies passing out or loss of consciousness. Denies dizziness or lightheadedness. Denies headache. Denies weakness or paralysis or loss of use of either side. Denies problems with gait or speech. Denies sensory loss, numbness, or tingling. Denies seizures. PSYCHIATRIC: Denies anxiety or stress. Denies depression, suicidal ideation, or homicidal ideation. ALL OTHER SYSTEMS REVIEWED AND NEGATIVE. PHYSICAL EXAMINATION: GENERAL: Well-appearing, well-nourished and in no acute distress. HEAD: Atraumatic, normocephalic. EYES: Pupils equal round and reactive to light, extraocular movements intact, conjunctiva are normal. ENT: Nares patent, oropharynx clear without exudates. Moist mucous membranes. TM with effusion bilaterally, no erythema. TMs intact. #15 gingiva with swelling, erythema and induration. No drainage or open wounds. No fluctuance. No facial swelling. Poor oral dentition, right upper jaw with minimal dental caries, no definite swelling or effusion. no trismus noted. Uvula is midline NECK: Normal range of motion, supple without lymphadenopathy LUNGS: Breath sounds clear to auscultation bilaterally and equal. No wheezes rales or rhonchi. HEART: Regular rate and rhythm without murmurs ABDOMEN: Soft, nontender, nondistended abdomen. No guarding, no rebound. No masses appreciated. Female : deferred Musculoskeletal: Normal range of motion, no pitting or edema. No cyanosis. NEUROLOGICAL: Cranial nerves grossly intact. Normal speech, normal gait. Normal sensory, motor exams PSYCH: Normal mood, normal affect. SKIN: Warm, Dry, normal turgor, no rashes or lesions noted. Dictation was performed using [employer] voice recognition software - EENT EENT: REPORTS: Ear Pain - left ear - REPRODUCTIVE Reproductive: REPORTS: : Past Medical History - Social History Smoking Status: Never Smoker Chew tobacco use (# tins/day): No Frequency of alcohol use: None Family History: Reviewed & Not Pertinent Patient has suicidal ideation: No Patient has homicidal ideation: No Renal/ Medical History: Denies: Hx Peritoneal Dialysis Musculoskeletal Medical History: Reports Hx Musculoskeletal Trauma Past Surgical History: Reports: Hx Orthopedic Surgery - left leg - Immunizations Hx Diphtheria, Pertussis, Tetanus Vaccination: No Vertical Provider Document - INFECTION CONTROL TRAVEL OUTSIDE OF THE [place] IN LAST 30 DAYS: No Course - Re-evaluation Re-evalutation: 09/03/19 12:26 Afebrile vital stable no distress. Nurse's notes reviewed. Advised apply heat 20 minutes on 20 minutes off several times a day. Soft diet. Take amoxicillin as directed. Follow-up with a dentist for further evaluation within 1 week. Take antibiotic with food. Monitor for any fevers or chills. After performing a Medical Screening Examination, I estimate there is LOW risk for a DEEP SPACE INFECTION (e.g., MANFRED'S ANGINA OR RETROPHARYNGEAL ABSCESS), MENINGITIS, INTRACRANIAL HEMORRHAGE, or AIRWAY COMPROMISE, thus I consider the discharge disposition reasonable. Also, there is no evidence or peritonitis, sepsis, or toxicity. I have reevaluated this patient multiple times and no significant life threatening changes are noted. The patient and I have discussed the diagnosis and risks, and we agree with discharging home with close follow-up with the understanding that symptoms and presentations can change. We also discussed returning to the Emergency Department immediately if new or worsening symptoms occur. We have discussed the symptoms which are most concerning (e.g., changing or worsening pain, trouble swallowing or breathing, neck stiffness or fever) that necessitate immediate return. - Vital Signs Vital signs: Temp Pulse Resp BP Pulse Ox 98.9 F 82 18 113/68 99 09/03/19 12:11 09/03/19 12:11 09/03/19 12:11 09/03/19 12:11 09/03/19 12:11 Discharge - Discharge Clinical Impression: Dental caries, Condition: Stable Disposition: HOME, SELF-CARE Instructions: Dentist, Dental Infection or Abscess ([facility]) Additional Instructions: Return immediately for any new or worsening symptoms. Follow up with primary care provider, call tomorrow to make followup appointment. Prescriptions: Amoxicillin Trihydrate [Amoxil 500 mg Capsule] 500 mg PO TID #30 capsule Forms: Return to Work Referrals: DIMPLE FLEMING MD [ACTIVE STAFF] - Follow up as needed REX RONDON DO [ACTIVE STAFF] - Follow up as needed
== END 2019-09-03 12:35 | disposition home or self-care (01) ==
LOC: ER 11:23
DX: O26.893 Other specified pregnancy related conditions, third trimester (principal); K02.9 Dental caries, unspecified; Z3A.28 28 weeks gestation of pregnancy
CPT/HCPCS: 99282

== ENCOUNTER 2019-11-02 15:51 | Outpatient (CLI) | payer OTHER ==
[2019-11-02] MEDS ORDERED: RINGERS SOLUTION,LACTATED 1,000 ML IV PRN (16:32)
[2019-11-02] MEDS ORDERED: ONDANSETRON HCL INJ/PF 4 MG/2 ML SDV ONE ×2 (17:17→21:41)
--- NOTE | 2019-11-02 17:28 | RADIOLOGY REPORT (SQ) ---
EXAM DESCRIPTION: U/S OB LIMITED COMPLETED DATE/TIME: 11/02/2019 5:11 pm REASON FOR STUDY: 35 weeks limited PNC cervical length COMPARISON: None. TECHNIQUE: Limited transabdominal grayscale ultrasound for evaluation of specific requested obstetri luis fernando parameters. LIMITATIONS: None. FINDINGS: CERVICAL LENGTH: 2.3 cm. Closed. CLIFF: 11.6 cm. FHR: 165 beats per minute. PRESENTATION: Cephalic. PLACENTA: Not assessed ANATOMY: Not assessed OTHER: Gestation of 35 weeks 1 day. IMPRESSION: LIMITED OBSTETRICAL ULTRASOUND WITH MEASURED PARAMETERS DELINEATED ABOVE. Trimester of : Third trimester - 28 weeks to delivery. TECHNICAL DOCUMENTATION: JOB ID: [id number] [employer]- All Rights Reserved Reading location - IP/workstation name: [email or web address]
[2019-11-02 17:40] LABS: APPEARANCE,URINE SLIGHTLY-CLOUDY; BILIRUBIN,URINE NEGATIVE (NEGATIVE); COLOR,URINE YELLOW; GLUCOSE, URINE NEGATIVE (NEGATIVE); KETONES,URINE NEGATIVE (NEGATIVE); LEUKOCYTE ESTERASE,URINE NEGATIVE (NEGATIVE); NITRITE,URINE NEGATIVE (NEGATIVE); PROTEIN,URINE NEGATIVE (NEGATIVE); URINE SPECIFIC GRAVITY 1.012; UROBILINOGEN,URINE NEGATIVE mg/dL (<2.0)
[2019-11-02] MEDS ORDERED: ONDANSETRON HCL INJ/PF 4 MG/2 ML SDV IV ONE ×2 (17:45→21:37)
[2019-11-02 17:49] LABS: URINE AMPHETAMINES SCREEN NEGATIVE; URINE BARBITURATES SCREEN NEGATIVE; URINE BENZODIAZEPINES SCREEN NEGATIVE; URINE COCAINE SCREEN NEGATIVE; URINE MARIJUANA (THC) SCREEN NEGATIVE; URINE METHADONE SCREEN NEGATIVE; URINE PHENCYCLIDINE SCREEN NEGATIVE
[2019-11-02] MEDS ORDERED: HYDROXYZINE PAMOATE 50 MG CAPSULE ONE (18:57)
[2019-11-02] MEDS ORDERED: HYDROXYZINE PAMOATE 50 MG CAPSULE PO ONE (19:15)
== END 2019-11-02 22:10 | disposition home or self-care (01) ==
LOC: LC 15:51
PROVIDERS: ATTEND Obstetrics & Gynecology Gynecology
PROC: 4A1HXCZ Monitoring of Products of Conception, Cardiac Rate, External Approach (ICD-10-PCS; principal; 2019-11-02)
DX: O09.33 Supervision of pregnancy with insufficient antenatal care, third trimester (principal); Z3A.35 35 weeks gestation of pregnancy
CPT/HCPCS: 59025; 81001; 80307; 76815; J2405

== ENCOUNTER 2019-11-23 16:59 | Outpatient (CLI) | payer OTHER ==
[2019-11-23 17:47] LABS: APPEARANCE,URINE CLOUDY; BILIRUBIN,URINE NEGATIVE (NEGATIVE); GLUCOSE, URINE NEGATIVE (NEGATIVE); KETONES,URINE NEGATIVE (NEGATIVE); LEUKOCYTE ESTERASE,URINE NEGATIVE (NEGATIVE); NITRITE,URINE NEGATIVE (NEGATIVE); PROTEIN,URINE 30 mg/dL (NEGATIVE); URINE SPECIFIC GRAVITY 1.008; UROBILINOGEN,URINE NEGATIVE mg/dL (<2.0)
[2019-11-23 17:49] LABS: COLOR,URINE YELLOW
[2019-11-23 17:58] LABS: URINE AMPHETAMINES SCREEN NEGATIVE; URINE BARBITURATES SCREEN NEGATIVE; URINE BENZODIAZEPINES SCREEN NEGATIVE; URINE COCAINE SCREEN NEGATIVE; URINE MARIJUANA (THC) SCREEN NEGATIVE; URINE METHADONE SCREEN NEGATIVE; URINE PHENCYCLIDINE SCREEN NEGATIVE
--- NOTE | 2019-11-23 18:22 | Non Stress Test Report ---
Non Stress Test Datetime Report Generated by CPN: 11/23/2019 18:22 DEMOGRAPHIC EGA NST: 38.1 INDICATION Indication for Study (NST) Other: ordered by provider VITAL SIGNS Temperature - NST: 98.1 Pulse - NST: 90 RESP - NST: 18 NBPSYS NST: 106 NBPDIA NST: 59 MONITORING Monitor Explained: Monitor Explained; Test Explained; Patient Verbalized Understanding Time on Monitor: 11/23/2019 17:21 Time off Monitor: 11/23/2019 18:20 NST Duration: 59 NST INTERVENTIONS NST Interventions: PO Hydration Physician Notified NST: Dr. Jose Physician Notified NST: Dr. Jose BABY A: [id number] BABY A Movement : Present Contraction Frequency : irregular FHR Baseline : 150 Accelerations : 15X15 Decelerations : None Variability : Moderate 6-25bpm NST Review: Meets Criteria for Reactive NST NST Review and Verified By : Joanna DUVAL Results: Reactive NST REPORT Report Trigger: Send Report
== END 2019-11-23 18:22 | disposition home or self-care (01) ==
LOC: LC 16:59
PROVIDERS: ATTEND Obstetrics & Gynecology
PROC: 4A1HXCZ Monitoring of Products of Conception, Cardiac Rate, External Approach (ICD-10-PCS; principal; 2019-11-23)
DX: O47.1 False labor at or after 37 completed weeks of gestation (principal); Z3A.38 38 weeks gestation of pregnancy
CPT/HCPCS: 59025; 80307; 81005; 84112

== ENCOUNTER 2019-12-08 13:18 | Outpatient (CLI) | payer OTHER | END 2019-12-08 14:24 | disposition home or self-care (01) | LOC: LC 13:18 | PROVIDERS: ATTEND Obstetrics & Gynecology | PROC: 4A1HXCZ Monitoring of Products of Conception, Cardiac Rate, External Approach (ICD-10-PCS; principal; 2019-12-08) | DX: Z34.93 Encounter for supervision of normal pregnancy, unspecified, third trimester (principal) | CPT/HCPCS: 59025; 84112 ==

== ENCOUNTER 2019-12-09 07:41 | Inpatient (IN) | payer OTHER ==
--- NOTE | 2019-12-09 07:44 | Non Stress Test Report ---
Non Stress Test Datetime Report Generated by CPN: 12/09/2019 07:44 DEMOGRAPHIC EGA NST: 40.2 INDICATION Indication for Study (NST) Other: Sent from [facility] for [employer] Prom MONITORING Monitor Explained: Monitor Explained; Test Explained; Patient Verbalized Understanding Time on Monitor: 12/08/2019 13:35 Time off Monitor: 12/08/2019 13:55 NST Duration: 20 NST INTERVENTIONS NST Interventions: Reposition Patient Physician Notified NST: NRobertson,CNM BABY A: [id number] BABY A Movement : Present Contraction Frequency : Irregular FHR Baseline : 150 Accelerations : 15X15 Decelerations : None Variability : Moderate 6-25bpm NST Review: Meets Criteria for Reactive NST NST Review and Verified By : ASHLEE PIERCE RN NST Results: Reactive NST REPORT Report Trigger: Send Report
[2019-12-09] MEDS ORDERED: OXYTOCIN/NORMAL SALINE 20 UNIT/1,000 ML RTUINJ IV PRN (08:24)
[2019-12-09] MEDS: RINGERS SOLUTION,LACTATED 1,000 ML IV PRN ×2 (08:30→20:30)
[2019-12-09] MEDS ORDERED: LIDOCAINE 1% INJ-PF (10 MG/ML) 30 ML SDV ONE (08:32)
[2019-12-09] MEDS ORDERED: OXYTOCIN 10 UNIT/ML VIAL ONE (08:32)
[2019-12-09] MEDS ORDERED: MISOPROSTOL 0.2 MG TABLET ONE (08:32)
[2019-12-09] MEDS ORDERED: OXYTOCIN/NORMAL SALINE 20 UNIT/1,000 ML RTUINJ ONE (08:32)
[2019-12-09 08:44] LABS: APPEARANCE,URINE SLIGHTLY-CLOUDY; BILIRUBIN,URINE NEGATIVE (NEGATIVE); COLOR,URINE YELLOW; GLUCOSE, URINE NEGATIVE (NEGATIVE); KETONES,URINE NEGATIVE (NEGATIVE); LEUKOCYTE ESTERASE,URINE NEGATIVE (NEGATIVE); NITRITE,URINE NEGATIVE (NEGATIVE); PROTEIN,URINE 100 mg/dL (NEGATIVE); URINE SPECIFIC GRAVITY 1.011; UROBILINOGEN,URINE NEGATIVE mg/dL (<2.0)
[2019-12-09 09:07] LABS: ABSOLUTE EOSINOPHILS # (AUTO) 0.1 10^3/uL (0.0-0.6); ABSOLUTE LYMPHOCYTES (AUTO) 2.1 10^3/uL (0.5-4.7); ABSOLUTE MONOCYTES (AUTO) 0.4 10^3/uL (0.1-1.4); ABSOLUTE NEUT (AUTO) 4.3 10^3/uL (1.7-8.2); BASOPHILS % (AUTO) 0.7 % (0-2); HEMATOCRIT 34.2 % (36.0-47.0); HEMOGLOBIN 11.8 g/dL (12.0-15.5); LYMPHOCYTES % (AUTO) 30.3 % (13-45); MEAN CORPUSCULAR HEMOGLOBIN 30.6 pg (27.0-33.4); MEAN CORPUSCULAR HGB CONC 34.6 g/dL (32.0-36.0); MEAN CORPUSCULAR VOLUME 88 fl (80-97); PLATELET COUNT 200 10^3/uL (150-450); RED BLOOD COUNT 3.86 10^6/uL (3.72-5.28); RED CELL DISTRIBUTION WIDTH 14.7 % (11.5-14.0); TOTAL CELLS COUNTED % (AUTO) 100 %
[2019-12-09 09:12] LABS: URINE AMPHETAMINES SCREEN NEGATIVE; URINE BARBITURATES SCREEN NEGATIVE; URINE BENZODIAZEPINES SCREEN NEGATIVE; URINE COCAINE SCREEN NEGATIVE; URINE MARIJUANA (THC) SCREEN NEGATIVE; URINE METHADONE SCREEN NEGATIVE; URINE PHENCYCLIDINE SCREEN NEGATIVE
--- NOTE | 2019-12-09 12:35 | Admission Physical ---
Datetime Report Generated by CPN: 12/09/2019 12:34 CURRENT ADMISSION Hx Assessment: The History has been Reviewed and is Current Chief Complaint: Scheduled Induction of Labor Indication for Induction: Oligohydramnios Admit Impression : Term, Intrauterine Admit Plan: Admit to Unit; Initiate Labor Induction Protocol ALLERGIES Medication Allergies: No Medication Allergies: No Known Allergies (11/23/2019) Latex: No Latex Allergies Food Allergies: None Environmental Allergies: none OBSTETRICAL HISTORY EDC: 12/06/2019 00:00 : 1 Para: 0 Term: 0 : 0 SAB: 0 IAB: 0 Ectopic: 0 Livin Cesareans: 0 VBACs: 0 Multiple Births: 0 Gestational Diabetes: No Rh Sensitization: No Incompetent Cervix: No JAQUELINE: No Infertility: No ART Treatment: No Uterine Anomaly: No IUGR: No Hx Previous C/S: No Macrosomia: No Hx Loss/Stillborn: No PIH: No Hx : No Placenta Previa/Abruption: No Depression/PP Depression: No PTL/PROM: No Post Hemorrhage: No Current Procedures: Ultrasound SEE RECORDS Alcohol: No Marijuana : No Cocaine: No Other Illicit Drugs: No Cigarettes: Former Smoker. 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 Heart Disease: No Hosp/Surgery: Yes Autoimmune Disorder: No Anesthetic Complications: No Kidney Disease: No Abnormal Pap Smear: No Neuro/Epilepsy: No Psychiatric Disorders: No Other Medical Diseases: No Hepatitis/Liver Disease: No Significant Family History: No Varicosities/Phlebitis: No Trauma/Violence : No Thyroid Dysfunction: No Medical History Comments: leg surgery at 4 years old INFECTIOUS HISTORY Gonorrhea: No Genital Herpes: No Chlamydia: Yes Tuberculosis: No Syphilis: No Hepatitis: No HIV/AIDS Exposure: No Rash or Viral Illness: No HPV: No Infectious History Comments: chlamydia-2012 PHYSICAL EXAM General: Normal Heart: Normal Lungs: Normal Back: Normal Abdomen: Normal Vital Signs: Reviewed; Within Normal Limits VAGINAL EXAM Dilatation: 2-3 Effacement: 50 Station: -2 Contraction Comments: rare MEMBRANES Membranes: Intact FETUS A EGA: 40.3 Monitoring: External US FHR- Baseline: 150 Variability: Moderate 6-25bpm Decelerations: None FHR Category: Category I Estimated Weight (gm): 4014 Presentation: Vertex Admit Comment: 24yo G1 @ 40w5d into L_D this AM for IOL secondary to oligohydramnios. Pt is [place], GBS neg with significant medical hx of left leg surgery at age 5, and stomach ulcers in 2014. uncomplicated other than elevated 1hr glucose with normal 3hr gtt. Pt was followed at [facility] and had 1 time consult at [facility] yesterday where she was found to be oligohydramnious. Plan is to start pitocin at this time. Dr. Reis is the OB operations administrative assistant today and was the provider who saw the patient yesterday and scheduled her for IOL this AM. Exam per Dr. Reis yesterday PLANS FOR LABOR AND DELIVERY Labor and Delivery: None Pain Management: Natural Feeding Preference: Both Benefit of Breast Feed Discussed: Yes Circumcision: No INFORMED CONSENT Assignment: Sussy Reis MD Signature: with User ID: Arya : with User ID: [email or web address]
[2019-12-09] MEDS ORDERED: EPHEDRINE SULFATE INJ 50 MG/1 ML AMPULE ONE (15:49)
[2019-12-09] MEDS ORDERED: FENTANYL/BUPIVACAINE/NS/PF 300 MCG/150 ML RTUINJ EPI ONE (15:50)
[2019-12-09] MEDS ORDERED: BUPIVACAINE HCL 0.25 % INJ/PF (2.5 MG/1 ML) 30 ML VIAL ONE (15:50)
[2019-12-09] MEDS ORDERED: ONDANSETRON HCL INJ/PF 4 MG/2 ML SDV IV PRN (23:01)
[2019-12-09] MEDS ORDERED: ONDANSETRON HCL INJ/PF 4 MG/2 ML SDV ONE (23:06)
[2019-12-10] MEDS ORDERED: DEXTROSE 5%-LACTATED RINGERS 250 ML IV ONE (02:30)
[2019-12-10] MEDS ORDERED: ACETAMINOPHEN 325 MG TABLET ONE (03:05)
[2019-12-10] MEDS ORDERED: ACETAMINOPHEN 325 MG TABLET PO ONE (03:30)
[2019-12-10] MEDS ORDERED: CEFAZOLIN SODIUM 2 GM in DEXTROSE 5%-WATER 50 ML IV PRN (04:34)
[2019-12-10] MEDS ORDERED: LIDOCAINE 2% INJ-PF (20 MG/ML) 10 ML AMPUL ONE ×2 (04:38)
[2019-12-10] MEDS ORDERED: CEFAZOLIN INJ 1 GM VIAL ONE (04:38)
[2019-12-10] MEDS ORDERED: CITRIC ACID/SODIUM CITRATE ORAL SOLN 15 ML UDCUP ONE (04:38)
[2019-12-10] MEDS ORDERED: KETOROLAC TROMETHAMINE INJ/PF 30 MG/1 ML SDV ONE (04:48)
[2019-12-10] MEDS ORDERED: PHENYLEPHRINE HCL INJ/PF 10 MG/1 ML SDV ONE (04:48)
[2019-12-10] MEDS ORDERED: FENTANYL CITRATE INJ/PF 100 MCG/2 ML AMPUL ONE ×2 (04:49→05:23)
[2019-12-10] MEDS ORDERED: ACETAMINOPHEN 1,000 MG/100 ML RTUPB IV ONE (04:49)
[2019-12-10] MEDS ORDERED: ONDANSETRON HCL INJ/PF 4 MG/2 ML SDV ONE (04:49)
--- NOTE | 2019-12-10 04:52 | Operative Report ---
Operative Report DATE OF SURGERY: 12/10/19 PREOPERATIVE DIAGNOSIS: , 40+6ega, Cephalopelvic Disproportion, Arrest of d ilation, Oligohydramnios POSTOPERATIVE DIAGNOSIS: MIKO - delivered, Macrosomia OPERATION: Primary Low Transverse section SURGEON: ELZBIETA EDMONDSON ANESTHESIA: Epidural TISSUE REMOVED OR ALTERED: placenta and cord COMPLICATIONS: None ESTIMATED BLOOD LOSS: 1800ml QUANTITATIVE BLOOD LOSS: 2,433 INTRAOPERATIVE FINDINGS: normal bilateral tubes/ovaries, VMI delivered at 0521 , weight 9#, Apgars 3/9. Vertex presentation. significant Uterine atony, 30 units IV pitocin, 0.2mg methergine given intrauterine, 10 units of pitocin given intrauterine, Uterine tone significantly improved after Intrauterine medications and therefore bleeding improved. Vaginal weep performed and significant amount of blood and clots noted and EBL adjusted to 1800ml and 1000mcg cytotec per r ectum. Upon arrival to PACU atony noted again. IM methergine 0.2mg and Hemabate 250mcg given. New pitocin 20units in 1 liter initiated. 2nd IV requested. Type and Cross for 4 units, STAT coags ordered. Will begin at least 1 unit transfusion and then additional as needed once labs returned. Methergine 0.2mg po ordered for 4 doses. Unasyn ordered due to repeat manual uterine sweeps. PROCEDURE: Anesthesia provider: [Jennifer BRIGHT, Jeri Witt CRNA] Urine output: [150ml] IV fluids: [1200ml] Indications: [24yo at 40+6ega presented for IOL due to oligohydramnios. complicated by late transfer of care at 40+4ega. 1 hr GTT at [facility] was 170 and 3hr completed with one abnormal (1 hour was 208) so reviewed that suspect GDM. EFW on 12/07 was 8#14oz. Patient arrived at 2cm and was initiated on pitocin on 12/08 and then achieved dilation of 7cm but no station change from -1 station. No cervical change in 3 hours. Reviewed with patient recommendatio ns for Primary section due to Arrest of Dilation and cephalopelvic disproportion. The risks, benefits, alternatives were reviewed and she desires to proceed with planned procedure.] Procedure: The patient was taken to the operating room where epidural anesthesia was obtained and found to be adequate. She was then prepped and draped in the normal sterile fashion and placed in the dorsal supine position with a leftward tilt. A Pfannenstiel skin incision was then made and carried through to the underlying layers of the fascia with the scalpel. The fascia was incised in the midline and the incision extended laterally with the Mancini scissors. The superior aspect of the fascial incision was then grasped with Kimmie clamps elevated and the underlying rectus muscles dissected off [bluntly]. Attention was then turned to the inferior aspect of the fascial incision which in a similar fashion was grasped, tented up with Kimmie clamps, and the rectus muscles dissected off [bluntly]. The rectus muscles were then in the midline and the peritoneum at the amount identified and entered [bluntly]. The peritoneal incision was then extended superiorly and inferiorly with good visualization of the bladder. The bladder blade was inserted and the vesicouterine peritoneum identified grasped with Greenlandic pickups and entered sharply with the Metzenbaum scissors. This incision was then extended laterally with the Metzenbaum scissors and a bladder flap created digitally. The bladder blade was then reinserted and the lower uterine segment incised in a transverse fashion with the scalpel. The uterine incision was then extended bluntly. The bladder blade was removed and the 's head was delivered from cephalic presentation atraumatically. The nose and mouth were suctioned and the cord doubly clamped and cut. And the was handed off to waiting pediatricians. The placenta was then delivered spontaneously and the uterus exteriorized and cleared of all clots and debris. Significant Uterine atony noted and medications given as noted above. The uterine incision was then repaired with 1-0 Vicryl in a running locked fashion. A second layer of the same suture was used to obtain hemostasis via imbrication of the initial layer. The bladder flap was then repaired with 3-0 chromic in a running fashion. The uterus was returned to the patient's abdomen and Interceed was placed overlying the uterine incision to prevent adhesions. Surgicel was placed for additional hemostasis. The gutters were cleared of all clots and debris. All operative sites were noted to be hemostatic. The fascia was reapproximated with 0 Vicryl in a running fashion from each lateral edge to the midline. The skin was closed with 3-0 Monocryl in a running subcuticular fashion with overlying Dermabond for additional dressing as well as wound closure. The patient tolerated the procedure well. Sponge lap needle and instrument counts are correct times 2. 2 g of Ancef were given prior to skin incision. The patient was taken to the recovery area awake and in stable condition. Then uterine atony noted again and additional medications given. See findings.
[2019-12-10] MEDS ORDERED: ACETAMINOPHEN 325 MG TABLET PO PRN (04:53)
[2019-12-10] MEDS ORDERED: OXYTOCIN/NORMAL SALINE 20 UNIT/1,000 ML RTUINJ IV PRN (04:53)
[2019-12-10] MEDS ORDERED: MEASLES,MUMPS&RUBELLA VACC/PF 0.5 ML VIAL SUBCUT PRN ×2 (04:53→08:30)
[2019-12-10] MEDS ORDERED: ACETAMINOPHEN 1,000 MG/100 ML RTUPB IV PRN (04:53)
[2019-12-10] MEDS ORDERED: PROMETHAZINE HCL INJ 25 MG/1 ML VIAL IV PRN ×2 (04:53→08:11)
[2019-12-10] MEDS ORDERED: OXYCODONE-ACETAMINOPHEN 5-325 MG TABLET PO PRN (04:53)
[2019-12-10] MEDS ORDERED: DIPH/PERTUSS(ACELL)/TETANUS VAC/PF 0.5 ML SYR (>=10YO) IM PRN ×2 (04:53→08:30)
[2019-12-10] MEDS ORDERED: OXYTOCIN 10 UNIT/ML VIAL ONE ×2 (05:11→05:37)
[2019-12-10] MEDS ORDERED: METHYLERGONOVINE MALEATE INJ/PF 0.2 MG/1 ML AMPULE ONE ×2 (05:28→06:39)
[2019-12-10] MEDS ORDERED: KETAMINE HCL INJ 500 MG/10 ML VIAL ONE (05:39)
[2019-12-10] MEDS ORDERED: MIDAZOLAM 2 MG/2 ML INJ ONE (05:40)
[2019-12-10] MEDS ORDERED: KETOROLAC TROMETHAMINE INJ/PF 30 MG/1 ML SDV IV SCH (06:00)
[2019-12-10] MEDS ORDERED: OXYTOCIN/NORMAL SALINE 20 UNIT/1,000 ML RTUINJ ONE (06:11)
[2019-12-10] MEDS ORDERED: CARBOPROST TROMETHAMINE INJ 250 MCG/1 ML AMPULE ONE (06:39)
[2019-12-10] MEDS ORDERED: LOPERAMIDE HCL 2 MG CAPSULE PO PRN (06:54)
[2019-12-10] MEDS ORDERED: LOPERAMIDE HCL 2 MG CAPSULE PO ONE (06:54)
[2019-12-10] MEDS ORDERED: CARBOPROST TROMETHAMINE INJ 250 MCG/1 ML AMPULE IM ONE (07:06)
[2019-12-10] MEDS ORDERED: METHYLERGONOVINE MALEATE INJ/PF 0.2 MG/1 ML AMPULE IV ONE (07:06)
[2019-12-10] MEDS ORDERED: NORMAL SALINE 250 ML IV PRN (07:06)
[2019-12-10] MEDS ORDERED: MORPHINE SULFATE 10 MG/ML INJ ONE ×2 (07:12→07:58)
[2019-12-10] MEDS ORDERED: PROMETHAZINE HCL INJ 25 MG/1 ML VIAL ONE (07:17)
[2019-12-10 07:19] LABS: ABSOLUTE LYMPHOCYTES (AUTO) 2.1 10^3/uL (0.5-4.7); ABSOLUTE MONOCYTES (AUTO) 0.8 10^3/uL (0.1-1.4); ABSOLUTE NEUT (AUTO) 10.4 10^3/uL (1.7-8.2); BASOPHILS % (AUTO) 0.2 % (0-2); HEMATOCRIT 28.7 % (36.0-47.0); LYMPHOCYTES % (AUTO) 15.6 % (13-45); MEAN CORPUSCULAR HEMOGLOBIN 30.1 pg (27.0-33.4); MEAN CORPUSCULAR HGB CONC 33.5 g/dL (32.0-36.0); MEAN CORPUSCULAR VOLUME 90 fl (80-97); MONOCYTES % (AUTO) 6.1 % (3-13); PLATELET COUNT 163 10^3/uL (150-450); RED CELL DISTRIBUTION WIDTH 14.9 % (11.5-14.0); SEGMENTED NEUTROPHILS % (AUTO) 78.1 % (42-78); TOTAL CELLS COUNTED % (AUTO) 100 %; WHITE BLOOD COUNT 13.3 10^3/uL (4.0-10.5)
[2019-12-10 07:21] LABS: HEMOGLOBIN 9.6 g/dL (12.0-15.5)
[2019-12-10 07:24] LABS: INTERNATIONAL RATION (INR) 1.12; PROTHROMBIN TIME 14.4 SEC (11.4-15.4)
[2019-12-10] MEDS ORDERED: AMPICILLIN SOD/SULBACTAM 3 GM VIAL ONE (07:24)
[2019-12-10 07:25] LABS: PARTIAL THROMBOPLASTIN TIME 27.1 SEC (23.5-35.8)
[2019-12-10 07:28] LABS: ALBUMIN 2.2 g/dL (3.5-5.0); ALKALINE PHOSPHATASE 146 U/L (38-126); ANION GAP 11 (5-19); ASPARTATE AMINO TRANSFERASE 25 U/L (14-36); BILIRUBIN,DIRECT 0.1 mg/dL (0.0-0.4); BILIRUBIN,TOTAL 0.2 mg/dL (0.2-1.3); BLOOD UREA NITROGEN 11 mg/dL (7-20); CALCIUM 7.7 mg/dL (8.4-10.2); CARBON DIOXIDE 12 mmol/L (22-30); CHLORIDE 109 mmol/L (98-107); GLUCOSE 95 mg/dL (75-110); POTASSIUM 4.2 mmol/L (3.6-5.0); TOTAL PROTEIN 4.6 g/dL (6.3-8.2)
--- NOTE | 2019-12-10 07:43 | Delivery Summary ---
Del Sum A-C Datetime Report Generated by CPN: 12/10/2019 07:42 DELIVERY PERSONNEL DELIVERY PERSONNEL: [id number] Delivery Doctor:: Sussy Reis MD Anesthesiologist:: Perez Rodriguez MD ESCORT PATIENTS:: Jeri Witt CRNA Labor and Delivery Nurse:: Nimco Waterman RN Director Of Exhibits:: Thuy Barrera RN Neonatal Nurse Practitioner:: YOBANY Mendes Nursery Nurse:: Elen Moody RN Rn Tele/ELECTRONIC INDUSTRIAL CONTROLS MECHANIC: Emil Johnson RN Rn Tele/ELECTRONIC INDUSTRIAL CONTROLS MECHANIC: Analia Mendoza, ST MATERNAL INFORMATION Delivery Anesthesia: Epidural; Spinal Medications After Delivery: Pitocin Bolus-Please Comment; Methergine 0.2mg IM; Cytotec 1000mcg Per Rectum/Vagina; Other-Please Comment Meds After Delivery Comment: 60units pitocin, 2 doses of 0.2mg methergine, 250mcg hemabate Delivery QBL: 2433 Maternal Complications: Hemorrhage LABOR SUMMARY EDC: 12/04/2019 00:00 No. Babies in Womb: 1 Attempted: No Labor Anesthesia: Epidural LABOR INFORMATION Reason for Induction: Post Dates; Oligohydramnios Onset of Labor: 12/09/2019 15:37 Oxytocin: Induction Group B Beta Strep: Negative Antibiotics # of Doses: N/A Antibiotics Time of Last Dose: N/A Name of Antibiotic Given: N/A Steroids Given: None Reason Steroids Not Administered: Not Applicable Other Reason Not Administered: N/A MEMBRANES Membranes Rupture Method: Artificial Rupture of Membranes: 12/09/2019 13:11 Length of Rupture (hr): 16.17 Amniotic Fluid Color: Clear Amniotic Fluid Amount: Scant Amniotic Fluid Odor: Normal STAGES OF LABOR Stage 3 hr: 0 Stage 3 min: 2 Total Time in Labor hr: 13 Total Time in Labor min: 46 VAGINAL DELIVERY Episiotomy: None Laceration #1: None Laceration Extension #1: N/A Laceration Repair: Not Applicable Sponge Count Correct: N/A Sharps Count Correct: N/A CSECTION DELIVERY Primary Indication: Arrest of Dilatation Secondary Indication: Other Other Secondary Indication: CPD CSection Urgency: Non-Scheduled CSection Incidence: Primary Labor: Labor Elective: Nonelective CSection Incision: Lower Uterine Transverse BABY A INFORMATION Infant Delivery Date/Time: 12/10/2019 05:21 Method of Delivery: Nurse Controlled Delivery: No Born in Route : No : N/A Forceps: N/A Vacuum Extraction: N/A Shoulder Dystocia : No PRESENTATION/POSITION BABY A Presentation: Cephalic Cephalic Presentation: Vertex Breech Presentation: N/A PLACENTA INFORMATION BABY A Placenta Delivery Time : 12/10/2019 05:23 Placenta Method of Delivery: Manual Removal Placenta Status: Delivered SCORES BABY A Heart Rate 1 min: Slow, Below 100 bpm Resp Effort 1 min: Slow, Irregular Reflex Irritability 1 min: Grimace Muscle Tone 1 min: Flaccid Color 1 min: Blue/Pale Resuscitation Effort 1 min: Tactile Stimulation; PPV/NCPAP SCORE 1 MIN: 3 Heart Rate 5 min: >100 bpm Resp Effort 5 min: Good Cry Reflex Irritability 5 min: Cough or Sneeze or Pulls Away Muscle Tone 5 min: Active Motion Color 5 min: Body [place], Extremities Blue Resuscitation Effort 5 min: Tactile Stimulation SCORE 5 MIN: 9 INFORMATION BABY A Gestational Age at Delivery: 40.6 Gestational Status: Full Term- 39- 40.6 Weeks Outcome : Liveborn Condition : Stable Infant Sex: Male IDENTIFICATION BABY A Verification Date/Time: 12/10/2019 05:34 ID Band Number: [id number] Mother's Name Verified: Yes RN Verifying : ROksana Cherry RN/ S. Sg RN WEIGHT/LENGTH BABY A Birthweight (gm): 4083 Infant Weight (lb): 9 Weight (oz): 0 Length (in): 21.00 Length (cm): 53.34 CORD INFORMATION BABY A No. Cord Vessels: 3 Nuchal Cord : N/A Cord Blood Taken: Yes-For Eval (Mom's Blood Type - or O+) Infant Suction: Mouth; Nose ASSESSMENT BABY A Infant Complications: Decreased Variability Physical Findings at Delivery: Other Physical Findings- Other: see nursery assessment Skin to Skin: No Marketing Copywriter/ALS Called : No Infant Care By: Elen Moody RN Transferred To: Nursery BABY B INFORMATION : N/A
[2019-12-10] MEDS ORDERED: FENTANYL CITRATE INJ/PF 100 MCG/2 ML AMPUL IV PRN ×3 (08:09→08:10)
[2019-12-10] MEDS ORDERED: MORPHINE SULFATE 10 MG/ML INJ IV PRN (08:11)
[2019-12-10] MEDS ORDERED: ONDANSETRON HCL INJ/PF 4 MG/2 ML SDV IV PRN (08:13)
[2019-12-10] MEDS ORDERED: DIPHENHYDRAMINE HCL 50 MG/ML VIAL IV PRN (08:14)
[2019-12-10] MEDS: OXYCODONE-ACETAMINOPHEN 5-325 MG TABLET PO PRN ×2 (09:49→13:58)
[2019-12-10] MEDS: DOCUSATE SODIUM 100 MG CAPSULE PO SCH ×2 (10:55→17:43)
[2019-12-10] MEDS: PRENATAL VITAMIN W DHA CAPSULE PO SCH (10:55)
[2019-12-10] MEDS ORDERED: AMPICILLIN SOD/SULBACTAM 3 GM VIAL IV SCH (12:00)
[2019-12-10] MEDS ORDERED: METHYLERGONOVINE MALEATE 0.2 MG TABLET ONE ×3 (12:51→22:46)
[2019-12-10 12:57] LABS: HEMOGLOBIN 10.3 g/dL (12.0-15.5); RED BLOOD COUNT 3.45 10^6/uL (3.72-5.28); WHITE BLOOD COUNT 15.8 10^3/uL (4.0-10.5)
[2019-12-10 12:58] LABS: HEMATOCRIT 30.6 % (36.0-47.0); MEAN CORPUSCULAR HEMOGLOBIN 29.8 pg (27.0-33.4); MEAN CORPUSCULAR HGB CONC 33.6 g/dL (32.0-36.0); MEAN CORPUSCULAR VOLUME 89 fl (80-97); PLATELET COUNT 146 10^3/uL (150-450); RED CELL DISTRIBUTION WIDTH 14.7 % (11.5-14.0)
[2019-12-10] MEDS: METHYLERGONOVINE MALEATE 0.2 MG TABLET PO SCH ×2 (13:03→17:43)
[2019-12-10] MEDS: AMPICILLIN SODIUM/SULBACTAM NA 3 GM in NORMAL SALINE 100 ML IV SCH ×2 (13:03→17:43)
[2019-12-10] MEDS: KETOROLAC TROMETHAMINE INJ/PF 30 MG/1 ML SDV IV SCH ×3 (13:57→21:59)
[2019-12-10] MEDS ORDERED: IBUPROFEN 800 MG TABLET PO SCH (14:00)
[2019-12-10] MEDS: HYDROMORPHONE HCL INJ/PF 2 MG/ML AMPULE IV PRN ×2 (14:55→22:47)
[2019-12-10] MEDS: SIMETHICONE 80 MG TAB.CHEW PO PRN (22:04)
[2019-12-11] MEDS: AMPICILLIN SODIUM/SULBACTAM NA 3 GM in NORMAL SALINE 100 ML IV SCH (03:42)
[2019-12-11] MEDS: METHYLERGONOVINE MALEATE 0.2 MG TABLET PO SCH ×2 (03:47→05:47)
[2019-12-11] MEDS ORDERED: METHYLERGONOVINE MALEATE 0.2 MG TABLET ONE (04:56)
[2019-12-11] MEDS: IBUPROFEN 800 MG TABLET PO SCH ×3 (05:48→18:25)
[2019-12-11 07:13] LABS: HEMATOCRIT 22.4 % (36.0-47.0); MEAN CORPUSCULAR HEMOGLOBIN 30.4 pg (27.0-33.4); MEAN CORPUSCULAR HGB CONC 34.6 g/dL (32.0-36.0); MEAN CORPUSCULAR VOLUME 88 fl (80-97); PLATELET COUNT 133 10^3/uL (150-450); RED BLOOD COUNT 2.55 10^6/uL (3.72-5.28); RED CELL DISTRIBUTION WIDTH 14.7 % (11.5-14.0); WHITE BLOOD COUNT 12.2 10^3/uL (4.0-10.5)
[2019-12-11 07:29] LABS: HEMOGLOBIN 7.8 g/dL (12.0-15.5)
[2019-12-11] MEDS: OXYCODONE-ACETAMINOPHEN 5-325 MG TABLET PO PRN ×2 (08:46→16:13)
[2019-12-11] MEDS: SIMETHICONE 80 MG TAB.CHEW PO PRN ×2 (09:03→16:13)
[2019-12-11] MEDS: DOCUSATE SODIUM 100 MG CAPSULE PO SCH ×2 (10:49→18:22)
[2019-12-11] MEDS: PRENATAL VITAMIN W DHA CAPSULE PO SCH (10:49)
--- NOTE | 2019-12-11 11:27 | PDOC PROGRESS REPORT ---
Subjective-OB Progress Note for:: 12/11/19 Subjective: reports bleeding slowing, pain controlled with current meds. not passing gas. states she just took gas-x Physical Exam (OB) Vital Signs: Temp Pulse Resp BP Pulse Ox 97.8 F 91 18 106/63 99 12/11/19 10:58 12/11/19 10:58 12/11/19 10:58 12/11/19 10:58 12/11/19 10:58 Intake & Output 12/10/19 12/11/19 12/12/19 06:59 06:59 06:59 Intake Total 1000 2500 Output Total 3040 Balance 1000 -540 Weight 81.329 kg - Dressing Removed: Yes - pressure dsg removed Incision: Well Approximated Closure Type: Surgical Glue - Abdomen Description: Tender Hernia Present: No Bowel Sounds: Hypoactive Fundal Description: Firm, Midline Fundal Height: u/u - u/2 - Abdominal Distension: Distended Tenderness: Tender - Extremities Lower extremities: Jose's sign - neg Ankle: Normal, Nontender Objective-Diagnostic Laboratory: 12/11/19 06:45 12/10/19 07:00 12/10/19 12/11/19 11:48 06:45 WBC 15.8 H 12.2 H RBC 3.45 L 2.55 L Hgb 10.3 L 7.8 L D Hct 30.6 L 22.4 L MCV 89 88 MCH 29.8 30.4 MCHC 33.6 34.6 RDW 14.7 H 14.7 H Plt Count 146 L 133 L Assessment and Plan(PN) - Assessment and Plan (1) Arrest of dilation, delivered, current hospitalization Is this a current diagnosis for this admission?: Yes (2) Encounter for induction of labor Is this a current diagnosis for this admission?: Yes (3) Oligohydramnios Is this a current diagnosis for this admission?: Yes (4) hemorrhage Is this a current diagnosis for this admission?: Yes (5) S/P primary low transverse Is this a current diagnosis for this admission?: Yes - Time Spent with Patient Time with patient: Less than 15 minutes - Disposition Anticipated Discharge: Home Within: within 24 hours
[2019-12-12] MEDS: OXYCODONE-ACETAMINOPHEN 5-325 MG TABLET PO PRN ×2 (00:39→06:17)
[2019-12-12] MEDS: IBUPROFEN 800 MG TABLET PO SCH ×4 (00:40→17:31)
[2019-12-12] MEDS: SIMETHICONE 80 MG TAB.CHEW PO PRN ×2 (00:43→14:04)
--- NOTE | 2019-12-12 08:19 | PDOC PROGRESS REPORT ---
Subjective-OB Progress Note for:: 12/12/19 Subjective: reports bleeding slowing, pain controlled with current meds, denies needs. has had BM. will recheck hgb and PLT today, most likely d/c tomorrow Physical Exam (OB) Vital Signs: Temp Pulse Resp BP Pulse Ox 98.0 F 90 18 117/79 99 12/12/19 07:56 12/12/19 07:56 12/12/19 07:56 12/12/19 07:56 12/12/19 07:56 Intake & Output 12/11/19 12/12/19 12/13/19 06:59 06:59 06:59 Intake Total 2500 540 Output Total 3040 200 Balance -540 340 - Dressing Removed: No - pressure dsg removed yesterday Incision: Well Approximated Closure Type: Surgical Glue - Abdomen Description: Soft Hernia Present: No Fundal Description: Firm, Midline Fundal Height: u/u - u/2 - Abdominal Distension: No distension Tenderness: Nontender - Extremities Lower extremities: Jose's sign - neg Calf: Normal, Nontender Objective-Diagnostic Laboratory: 12/11/19 06:45 12/10/19 07:00 12/09/19 08:47 Blood Type O POSITIVE Antibody Screen NEGATIVE Assessment and Plan(PN) - Assessment and Plan (1) Arrest of dilation, delivered, current hospitalization Is this a current diagnosis for this admission?: Yes (2) Encounter for induction of labor Is this a current diagnosis for this admission?: Yes (3) Oligohydramnios Is this a current diagnosis for this admission?: Yes (4) hemorrhage Is this a current diagnosis for this admission?: Yes (5) S/P primary low transverse Is this a current diagnosis for this admission?: Yes (6) Transfusion of blood during current hospitalisation Is this a current diagnosis for this admission?: Yes - Time Spent with Patient Time with patient: Less than 15 minutes - Disposition Anticipated Discharge: Home Within: within 24 hours
[2019-12-12] MEDS: DOCUSATE SODIUM 100 MG CAPSULE PO SCH ×2 (09:16→17:31)
[2019-12-12] MEDS: PRENATAL VITAMIN W DHA CAPSULE PO SCH (09:16)
[2019-12-12 11:40] LABS: ABSOLUTE EOSINOPHILS # (AUTO) 0.2 10^3/uL (0.0-0.6); ABSOLUTE LYMPHOCYTES (AUTO) 2.3 10^3/uL (0.5-4.7); ABSOLUTE MONOCYTES (AUTO) 0.4 10^3/uL (0.1-1.4); ABSOLUTE NEUT (AUTO) 9.6 10^3/uL (1.7-8.2); BASOPHILS % (AUTO) 0.2 % (0-2); EOSINOPHILS % (AUTO) 1.7 % (0-6); HEMATOCRIT 25.7 % (36.0-47.0); HEMOGLOBIN 8.9 g/dL (12.0-15.5); LYMPHOCYTES % (AUTO) 18.5 % (13-45); MEAN CORPUSCULAR HEMOGLOBIN 30.2 pg (27.0-33.4); MEAN CORPUSCULAR HGB CONC 34.7 g/dL (32.0-36.0); MEAN CORPUSCULAR VOLUME 87 fl (80-97); PLATELET COUNT 159 10^3/uL (150-450); RED BLOOD COUNT 2.96 10^6/uL (3.72-5.28); RED CELL DISTRIBUTION WIDTH 14.8 % (11.5-14.0); SEGMENTED NEUTROPHILS % (AUTO) 76.6 % (42-78); TOTAL CELLS COUNTED % (AUTO) 100 %; WHITE BLOOD COUNT 12.5 10^3/uL (4.0-10.5)
[2019-12-13] MEDS: IBUPROFEN 800 MG TABLET PO SCH ×3 (00:14→11:29)
[2019-12-13] MEDS: OXYCODONE-ACETAMINOPHEN 5-325 MG TABLET PO PRN ×2 (02:04→11:29)
[2019-12-13 08:21] VITALS: BP 124/72
[2019-12-13] MEDS: DOCUSATE SODIUM 100 MG CAPSULE PO SCH (09:47)
[2019-12-13] MEDS: PRENATAL VITAMIN W DHA CAPSULE PO SCH (09:47)
--- NOTE | 2019-12-13 10:26 | PDOC DISCHARGE SUMMARY ---
Impression - Admit/DC Date/PCP Admission Date/Primary Care Provider: 12/09/19 07:47 Discharge Date: 12/13/19 - Discharge Diagnosis (1) Arrest of dilation, delivered, current hospitalization Is this a current diagnosis for this admission?: Yes (2) Encounter for induction of labor Is this a current diagnosis for this admission?: Yes (3) Oligohydramnios Is this a current diagnosis for this admission?: Yes (4) hemorrhage Is this a current diagnosis for this admission?: Yes (5) S/P primary low transverse Is this a current diagnosis for this admission?: Yes (6) Transfusion of blood during current hospitalisation Is this a current diagnosis for this admission?: Yes - Additional Information Discharge Diet: Regular Discharge Activity: Balance Activity w/Rest, No Lifting Over 10 Pounds, No Lifting/Push/Pulling, Pelvic Rest, No tub bath Prescriptions: Ferrous Sulfate [Ferrousul] 325 mg PO DAILY #30 tablet Ibuprofen [Motrin 800 mg Tablet] 800 mg PO Q8HP PRN #60 tablet PRN Reason: Oxycodone HCl/Acetaminophen [Percocet 5-325 mg Tablet] 1 tab PO Q4HP PRN #30 tablet PRN Reason: Home Medications: No122/Iron/Folic Acid [ Multi Tablet] 1 each PO DAILY 11/02/19 Ferrous Sulfate [Ferrousul] 325 mg PO DAILY #30 tablet 12/13/19 Ibuprofen [Motrin 800 mg Tablet] 800 mg PO Q8HP PRN #60 tablet 12/13/19 Oxycodone HCl/Acetaminophen [Percocet 5-325 mg Tablet] 1 tab PO Q4HP PRN #30 tablet 12/13/19 HPI Gestational Age: 40+6 Reason(s) for Admission: Induction of Labor Procedures: NST Intrapartum Procedure(s): : Low Cervical, Transverse Results Laboratory Results: WBC 12.5 10^3/uL (4.0-10.5) H 12/12/19 11:28 RBC 2.96 10^6/uL (3.72-5.28) L 12/12/19 11:28 Hgb 8.9 g/dL (12.0-15.5) L 12/12/19 11:28 Hct 25.7 % (36.0-47.0) L 12/12/19 11:28 MCV 87 fl (80-97) 12/12/19 11:28 MCH 30.2 pg (27.0-33.4) 12/12/19 11:28 MCHC 34.7 g/dL (32.0-36.0) 12/12/19 11:28 RDW 14.8 % (11.5-14.0) H 12/12/19 11:28 Plt Count 159 10^3/uL (150-450) 12/12/19 11:28 Lymph % (Auto) 18.5 % (13-45) 12/12/19 11:28 [place]ke % (Auto) 3.0 % (3-13) 12/12/19 11:28 Eos % (Auto) 1.7 % (0-6) 12/12/19 11:28 Baso % (Auto) 0.2 % (0-2) 12/12/19 11:28 Absolute Neuts (auto) 9.6 10^3/uL (1.7-8.2) H 12/12/19 11:28 Absolute Lymphs (auto) 2.3 10^3/uL (0.5-4.7) 12/12/19 11:28 Absolute Monos (auto) 0.4 10^3/uL (0.1-1.4) 12/12/19 11:28 Absolute Eos (auto) 0.2 10^3/uL (0.0-0.6) 12/12/19 11:28 Absolute Basos (auto) 0.0 10^3/uL (0.0-0.2) 12/12/19 11:28 Seg Neutrophils % 76.6 % (42-78) 12/12/19 11:28 PT 14.4 SEC (11.4-15.4) 12/10/19 07:00 INR 1.12 12/10/19 07:00 APTT 27.1 SEC (23.5-35.8) 12/10/19 07:00 Fibrinogen 368 mg/dL (209-497) 12/10/19 07:00 Sodium 132.0 mmol/L (137-145) L 12/10/19 07:00 Potassium 4.2 mmol/L (3.6-5.0) 12/10/19 07:00 Chloride 109 mmol/L (98-107) H 12/10/19 07:00 Carbon Dioxide 12 mmol/L (22-30) L 12/10/19 07:00 Anion Gap 11 (5-19) 12/10/19 07:00 BUN 11 mg/dL (7-20) 12/10/19 07:00 Creatinine 0.86 mg/dL (0.52-1.25) 12/10/19 07:00 Est GFR ( Amer) > 60 (>60) 12/10/19 07:00 Est GFR (MDRD) Non-Af > 60 (>60) 12/10/19 07:00 Glucose 95 mg/dL (75-110) 12/10/19 07:00 Calcium 7.7 mg/dL (8.4-10.2) L 12/10/19 07:00 Total Bilirubin 0.2 mg/dL (0.2-1.3) 12/10/19 07:00 Direct Bilirubin 0.1 mg/dL (0.0-0.4) 12/10/19 07:00 Neonat Total Bilirubin Not Reportable 12/10/19 07:00 Neonat Direct Bilirubin Not Reportable 12/10/19 07:00 Neonat Indirect Bili Not Reportable 12/10/19 07:00 AST 25 U/L (14-36) 12/10/19 07:00 ALT 13 U/L (<35) 12/10/19 07:00 Alkaline Phosphatase 146 U/L (38-126) H 12/10/19 07:00 Total Protein 4.6 g/dL (6.3-8.2) L 12/10/19 07:00 Albumin 2.2 g/dL (3.5-5.0) L 12/10/19 07:00 Urine Color YELLOW 12/09/19 07:57 Urine Appearance SLIGHTLY-CLOUDY 12/09/19 07:57 Urine pH 6.0 (5.0-9.0) 12/09/19 07:57 Ur Specific [place] 1.011 12/09/19 07:57 Urine Protein 100 mg/dL (NEGATIVE) H 12/09/19 07:57 Urine Glucose (UA) NEGATIVE mg/dL (NEGATIVE) 12/09/19 07:57 Urine Ketones NEGATIVE mg/dL (NEGATIVE) 12/09/19 07:57 Urine Blood NEGATIVE (NEGATIVE) 12/09/19 07:57 Urine Nitrite NEGATIVE (NEGATIVE) 12/09/19 07:57 Urine Bilirubin NEGATIVE (NEGATIVE) 12/09/19 07:57 Urine Urobilinogen NEGATIVE mg/dL (<2.0) 12/09/19 07:57 Ur Leukocyte Esterase NEGATIVE (NEGATIVE) 12/09/19 07:57 Urine Ascorbic Acid NEGATIVE (NEGATIVE) 12/09/19 07:57 Urine Opiates Screen NEGATIVE 12/09/19 07:57 Urine Methadone Screen NEGATIVE 12/09/19 07:57 Ur Barbiturates Screen NEGATIVE 12/09/19 07:57 Ur Phencyclidine Scrn NEGATIVE 12/09/19 07:57 Ur Amphetamines Screen NEGATIVE 12/09/19 07:57 U Benzodiazepines Scrn NEGATIVE 12/09/19 07:57 Urine Cocaine Screen NEGATIVE 12/09/19 07:57 U Marijuana (THC) Screen NEGATIVE 12/09/19 07:57 RPR NONREACTIVE (NONREACTIVE) 12/09/19 08:47 Blood Type O POSITIVE 12/09/19 08:47 Blood Type Confirm O POSITIVE 12/09/19 08:47 Antibody Screen NEGATIVE 12/09/19 08:47 Crossmatch See Detail 12/09/19 08:47 Plan Plan of Treatment: start control pills at 3 weeks post . follow up in 1 week at [facility] for incision check
== END 2019-12-13 11:49 | disposition home or self-care (01) | DRG 787 ==
LOC: LC 07:41 → LR 07:47 → 2S 12-10 09:27
PROVIDERS: ADMIT Student in an Organized Health Care Education/Training Program; ATTEND Student in an Organized Health Care Education/Training Program
PROC: 10D00Z1 Extraction of Products of Conception, Low, Open Approach (ICD-10-PCS; principal; 2019-12-10)
PROC: 30233N1 Transfusion of Nonautologous Red Blood Cells into Peripheral Vein, Percutaneous Approach (ICD-10-PCS; 2019-12-10)
PROC: 30233N1 Transfusion of Nonautologous Red Blood Cells into Peripheral Vein, Percutaneous Approach (ICD-10-PCS; 2019-12-11)
DX: O41.03X0 Oligohydramnios, third trimester, not applicable or unspecified (principal); O72.1 Other immediate postpartum hemorrhage; O33.9 Maternal care for disproportion, unspecified; O62.0 Primary inadequate contractions; O36.63X0 Maternal care for excessive fetal growth, third trimester, not applicable or unspecified; O76 Abnormality in fetal heart rate and rhythm complicating labor and delivery; O67.8 Other intrapartum hemorrhage; Z3A.40 40 weeks gestation of pregnancy; Z37.0 Single live birth
CPT/HCPCS: 1961; 36415; 36430; 80053; 80307; 81005; 85025; 85027; 85384; 85610; 85730; 86592; 86850; 86900; 86901; 86920; 88307; 94760; 94799; C1765; J0131; J0295; J0690; J1170; J1885; J2210; J2250; J2270; J2370; J2405; J2550; J2590; J3010; J3490; J7050; P9016

== ENCOUNTER 2020-03-25 21:43 | Emergency (ER) | payer SELFPAY ==
[2020-03-25] MEDS ORDERED: ONDANSETRON HCL INJ/PF 4 MG/2 ML SDV IV ONE (22:05)
[2020-03-25] MEDS ORDERED: NORMAL SALINE 1000 ML 1,000 ML IV ONE (22:05)
--- NOTE | 2020-03-25 22:06 | ER Document Report ---
ED Medical Screen (RME) - General Chief Complaint: Flank Pain Stated Complaint: BILATERAL FLANK PAIN, PAIN WITH URINATION, NAUSEA Time Seen by Provider: 03/25/20 22:00 Mode of Arrival: Ambulatory Information source: Patient Notes: HPI; 24-year-old female presents to the emergency room complaining of intermittent nausea, vomiting, diarrhea, dysuria and left flank pain for the past week. Patient states diarrhea is not daily but when she has it at least 2- 3 times a day. Patient did return from [place] on March 13. No known COVID-19 exposure. PE: Alert and oriented x3. Lungs: Clear to auscultation without rales, rhonchi, wheezes. Heart: Regular rate and rhythm without murmurs, rubs, gallops. No CVA tenderness noted bilaterally. I have greeted and performed a rapid initial assessment of this patient. A comprehensive ED assessment and evaluation of the patient, analysis of test results and completion of the medical decision making process will be conducted by additional ED providers. I have specifically instructed the patient or family members with the patient to immediately return to any nursing staff should anything change in the patient's condition or with their chief complaint. TRAVEL OUTSIDE OF THE [place] IN LAST 30 DAYS: No - Related Data Allergies/Adverse Reactions: No Known Allergies Allergy (Verified 11/23/19 17:12) Past Medical History Renal/ Medical History: Denies: Hx Peritoneal Dialysis Musculoskeltal Medical History: Reports Hx Musculoskeletal Trauma Past Surgical History: Reports: Hx Orthopedic Surgery - left leg - Immunizations Hx Diphtheria, Pertussis, Tetanus Vaccination: No Physical Exam - Vital signs Vitals: Temp Pulse Resp BP Pulse Ox 99.2 F 62 16 121/60 97 03/25/20 21:57 03/25/20 21:57 03/25/20 21:57 03/25/20 21:57 03/25/20 21:57 Course - Vital Signs Vital signs: Temp Pulse Resp BP Pulse Ox 99.2 F 62 16 121/60 97 03/25/20 21:57 03/25/20 21:57 03/25/20 21:57 03/25/20 21:57 03/25/20 21:57
--- NOTE | 2020-03-25 23:07 | ER Document Report ---
ED General - General Chief Complaint: Nausea/Vomiting/Diarrhea Stated Complaint: BILATERAL FLANK PAIN, PAIN WITH URINATION, NAUSEA Time Seen by Provider: 03/25/20 22:00 Mode of Arrival: Ambulatory Information source: Patient Notes: Patient is a 24-year-old female presenting to the emergency department chief complaint of niya pain nausea and vomiting and diarrhea. Patient states that she was in [place] the through 13 March however before that she had intermittent nausea and vomiting and since she has been home she has had 4 days of intermittent diarrhea. Patient states she is approximately 3 months . She states that she attempted a vaginal delivery but ultimately had to deliver by secondary to lack of progression. Patient denies any obvious sick exposures denies fever or cough. TRAVEL OUTSIDE OF THE [place] IN LAST 30 DAYS: No - HPI Onset: Other Onset/Duration: Intermittent, Worse Quality of pain: Achy Severity: Mild Pain Level: 2 Associated symptoms: Diarrhea, Nausea, Vomiting - Related Data Allergies/Adverse Reactions: No Known Allergies Allergy (Verified 11/23/19 17:12) Home Medications: , BCP Past Medical History - General Information source: Patient - Social History Smoking Status: Current Some Day Smoker Cigarette use (# per day): Yes Chew tobacco use (# tins/day): No Smoking Education Provided: Yes Frequency of alcohol use: None Drug Abuse: None Lives with: Family Family History: Reviewed & Not Pertinent Patient has suicidal ideation: No Patient has homicidal ideation: No - Medical History Medical History: Negative Renal/ Medical History: Denies: Hx Peritoneal Dialysis Musculoskeletal Medical History: Reports Hx Musculoskeletal Trauma Past Surgical History: Reports: Hx Section, Hx Orthopedic Surgery - left leg - Immunizations Hx Diphtheria, Pertussis, Tetanus Vaccination: No Review of Systems - Review of Systems Notes: REVIEW OF SYSTEMS: CONSTITUTIONAL : Denies fever, chills, or sweats. Denies recent illness. EENT: Denies eye, ear, throat, or mouth pain or symptoms. Denies nasal or sinus congestion. CARDIOVASCULAR: Denies chest pain. RESPIRATORY: Denies cough, cold, or chest congestion. Denies shortness of breath, difficulty breathing, or wheezing. GASTROINTESTINAL: Per HPI GENITOURINARY: Reports difficulty urinating. MUSCULOSKELETAL: Denies neck or back pain or joint pain or swelling. SKIN: Denies rash or skin lesions. HEMATOLOGIC : Denies easy bruising or bleeding. NEUROLOGICAL: Denies altered mental status or loss of consciousness. Denies headache. Denies weakness or paralysis or loss of use of either side. Denies problems with gait or speech. Denies sensory or motor loss. PSYCHIATRIC: Denies suicidal or homicidal ideations 10 Systems are negative unless otherwise specified above Physical Exam - Vital signs Vitals: Temp Pulse Resp BP Pulse Ox 99.2 F 62 16 121/60 97 03/25/20 21:57 03/25/20 21:57 03/25/20 21:57 03/25/20 21:57 03/25/20 21:57 - Notes Notes: PHYSICAL EXAMINATION: GENERAL: Well-appearing, well-nourished and in no acute distress. HEAD: Atraumatic, normocephalic. EYES: Pupils equal round and reactive to light, extraocular movements intact, sclera anicteric, conjunctiva are normal. ENT: nares patent, oropharynx clear without exudates. Moist mucous membranes. NECK: Normal range of motion, supple without lymphadenopathy, no appreciable JVD LUNGS: Lungs clear to auscultation bilaterally and equal. No wheezes rales or rhonchi. HEART: Regular rate and rhythm without murmurs ABDOMEN: Soft, minimally tender, normal bowel sounds. No guarding, no rebound. No masses appreciated. scar is clean dry intact there is no palpable masses in the area of the transverse scar. EXTREMITIES: Active full range of motion, no pitting or edema. No cyanosis. 2+ pulses x4 NEUROLOGICAL: No focal neurological deficits. Moves all extremities spontaneously and on command. SKIN: Warm, Dry, and intact. Normal turgor, no rashes or lesions noted. Course - Re-evaluation Re-evalutation: 03/26/20 01:50 Patient has been reevaluated several times while in the emergency department. Patient has remained stable without decompensation. After review of applicable laboratory and/or radiologic results, there are no signs of acute abdomen to include: acute appendicitis, pancreatitis, cholelithiasis or cholecystitis, bowel obstruction or ileus, there are no signs of Aortic Dissection, diverticulitis or diverticulosis, Kidney abnormalities to include urinary tract infection, renal failure or kidney stones. 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 I have reviewed the laboratory and/or radiologic results with the patient answered all questions. Patient is agreeable with discharge at this time. Patient is recommended to follow-up with primary care provider in the next several days for follow-up. Patient should return to the emergency department for worsening symptoms to include worsening pain, bloody vomitus, bloody diarrhea, inability to tolerate fluids or fever greater than 101 orally. - Vital Signs Vital signs: Temp Pulse Resp BP Pulse Ox 98.0 F 64 16 112/72 100 03/26/20 01:41 03/26/20 01:41 03/26/20 01:41 03/26/20 01:41 03/26/20 01:41 - Laboratory Result Diagrams: 03/25/20 23:05 03/25/20 23:05 Laboratory results interpreted by me: 03/25/20 23:05 Total Protein 8.4 H Albumin 5.1 H Discharge - Discharge Clinical Impression: Abdominal pain Qualifiers: Abdominal location: generalized Qualified Code(s): R10.84 - Generalized abdominal pain Nausea & vomiting Qualifiers: Vomiting type: unspecified Vomiting Intractability: non-intractable Qualified Code(s): R11.2 - Nausea with vomiting, unspecified Condition: Stable Disposition: HOME, SELF-CARE Instructions: Abdominal Pain ([facility]), Vomiting ([facility]) Prescriptions: Ondansetron [Zofran Odt 4 mg Tablet] 1 - 2 tab PO Q4H PRN #15 tab.rapdis PRN Reason: For Nausea/Vomiting
[2020-03-25 23:38] LABS: ABSOLUTE EOSINOPHILS # (AUTO) 0.2 10^3/uL (0.0-0.6); ABSOLUTE LYMPHOCYTES (AUTO) 4.1 10^3/uL (0.5-4.7); ABSOLUTE MONOCYTES (AUTO) 0.5 10^3/uL (0.1-1.4); ABSOLUTE NEUT (AUTO) 4.3 10^3/uL (1.7-8.2); BASOPHILS % (AUTO) 0.5 % (0-2); EOSINOPHILS % (AUTO) 1.7 % (0-6); HEMATOCRIT 41.2 % (36.0-47.0); LYMPHOCYTES % (AUTO) 44.8 % (13-45); MEAN CORPUSCULAR HEMOGLOBIN 29.1 pg (27.0-33.4); MEAN CORPUSCULAR VOLUME 86 fl (80-97); MONOCYTES % (AUTO) 5.9 % (3-13); PLATELET COUNT 306 10^3/uL (150-450); RED CELL DISTRIBUTION WIDTH 13.6 % (11.5-14.0); SEGMENTED NEUTROPHILS % (AUTO) 47.1 % (42-78); TOTAL CELLS COUNTED % (AUTO) 100 %; WHITE BLOOD COUNT 9.2 10^3/uL (4.0-10.5)
[2020-03-25 23:56] LABS: APPEARANCE,URINE CLEAR; BILIRUBIN,URINE NEGATIVE (NEGATIVE); COLOR,URINE YELLOW; GLUCOSE, URINE NEGATIVE (NEGATIVE); KETONES,URINE NEGATIVE (NEGATIVE); LEUKOCYTE ESTERASE,URINE NEGATIVE (NEGATIVE); NITRITE,URINE NEGATIVE (NEGATIVE); PROTEIN,URINE NEGATIVE (NEGATIVE); URINE SPECIFIC GRAVITY 1.013; UROBILINOGEN,URINE NEGATIVE mg/dL (<2.0)
[2020-03-25 23:57] LABS: ALBUMIN 5.1 g/dL (3.5-5.0); ALKALINE PHOSPHATASE 92 U/L (38-126); ANION GAP 8 (5-19); ASPARTATE AMINO TRANSFERASE 30 U/L (14-36); BILIRUBIN,TOTAL 0.2 mg/dL (0.2-1.3); BLOOD UREA NITROGEN 16 mg/dL (7-20); CALCIUM 10.2 mg/dL (8.4-10.2); CARBON DIOXIDE 28 mmol/L (22-30); CHLORIDE 101 mmol/L (98-107); GLUCOSE 87 mg/dL (75-110); POTASSIUM 3.8 mmol/L (3.6-5.0); TOTAL PROTEIN 8.4 g/dL (6.3-8.2)
--- NOTE | 2020-03-26 01:20 | RADIOLOGY REPORT (SQ) ---
EXAM DESCRIPTION: CT ABDOMEN PELVIS WITH IV CONTRAST COMPLETED DATE/TME: 03/25/2020 23:27 CLINICAL HISTORY: 24 years, Female, pain, n/v/d COMPARISON: None. TECHNIQUE: [id number] Images stored on PACS. All CT scanners at this facility use dose modulation, iterative reconstruction, and/or weight based dosing when appropriate to reduce radiation dose to as low as reasonably achievable (ALARA). [facility]: Dose Right [facility]: CareDose [facility]: Dose Right [facility]: Teradose 4D [facility]: [employer] LIMITATIONS: None. FINDINGS: The visualized lung bases are unremarkable. Osseous structures are grossly intact. Heterogeneous area of enhancement involving the inferior right hepatic lobe. This is not well seen on delayed images and likely reflects transient hepatic attenuation difference. The spleen, adrenal glands, pancreas, kidneys are unremarkable. No gross evidence for bowel obstruction. Normal appendix. No free air or free fluid. IMPRESSION: No acute intra-abdominal/pelvic process TECHNICAL DOCUMENTATION: Quality ID # [id number]: Final reports with documentation of one or more dose reduction techniques (e.g., Automated exposure control, adjustment of the mA and/or kV according to patient size, use of iterative reconstruction technique) copyright 2011 [employer]- All Rights Reserved
[2020-03-26 01:42] VITALS: BP 112/72
== END 2020-03-26 01:48 | disposition home or self-care (01) ==
LOC: ER 21:43
DX: R10.84 Generalized abdominal pain (principal); R11.2 Nausea with vomiting, unspecified; R19.7 Diarrhea, unspecified; Z88.8 Allergy status to other drugs, medicaments and biological substances; F17.210 Nicotine dependence, cigarettes, uncomplicated
CPT/HCPCS: 99284; 96361; 96374; 36415; 83690; 84703; 85025; 80053; 81001; 74177; J2405; J7030